=== PATIENT | female | born 1990 | race Caucasian/White ===

== ENCOUNTER → 2020-08-27 14:13 | Outpatient (BNVA) | payer MEDICAID, SELFPAY | PROVIDERS: Visit Provider Obstetrics & Gynecology | DX: Z32.01 Encounter for pregnancy test, result positive (principal) | CPT/HCPCS: 81025 ==

== ENCOUNTER → 2020-09-11 09:24 | Outpatient (BNVA) | payer MEDICAID, SELFPAY | PROVIDERS: Visit Provider Nurse Practitioner Women's Health | DX: O09.291 Supervision of pregnancy with other poor reproductive or obstetric history, first trimester (principal) | CPT/HCPCS: 81000 ==

== ENCOUNTER → 2020-09-27 08:20 | Outpatient (BNVA) | payer MEDICAID, SELFPAY | PROVIDERS: Visit Provider Obstetrics & Gynecology | DX: Z34.90 Encounter for supervision of normal pregnancy, unspecified, unspecified trimester (principal) | CPT/HCPCS: 80053; 80307; 81000; 85027; 86592; 86762; 86803; 86850; 86900; 87340; 87806 ==

== ENCOUNTER → 2020-10-11 08:50 | Outpatient (BNVA) | payer MEDICAID, SELFPAY | PROVIDERS: Visit Provider Obstetrics & Gynecology | DX: Z34.90 Encounter for supervision of normal pregnancy, unspecified, unspecified trimester (principal) | CPT/HCPCS: 81000 ==

== ENCOUNTER → 2020-10-13 13:49 | Outpatient (BNVA) | payer MEDICAID, SELFPAY | PROVIDERS: Visit Provider Nurse Practitioner Family | DX: Z20.828 Contact with and (suspected) exposure to other viral communicable diseases (principal) | CPT/HCPCS: 87635 ==

== ENCOUNTER → 2020-11-01 08:45 | Outpatient (BNVA) | payer MEDICAID, SELFPAY | PROVIDERS: Visit Provider Obstetrics & Gynecology | DX: Z34.81 Encounter for supervision of other normal pregnancy, first trimester (principal) | CPT/HCPCS: 81000; 87491; 87591; 88175 ==

== ENCOUNTER → 2020-12-06 08:11 | Outpatient (BNVA) | payer MEDICAID, SELFPAY | PROVIDERS: Visit Provider Obstetrics & Gynecology | DX: Z34.90 Encounter for supervision of normal pregnancy, unspecified, unspecified trimester (principal) | CPT/HCPCS: 76805; 81000 ==

== ENCOUNTER 2020-12-14 19:32 | Emergency (ER) | payer MEDICAID, SELFPAY ==
[2020-12-14 19:40] VITALS: BP 113/74; PULSE 83; RESP 18; TEMP 36.6; O2SAT 99; BMI 29.6
[2020-12-14 20:26] VITALS: BP 119/74; PULSE 84; RESP 17; O2SAT 100
--- NOTE | 2020-12-14 20:43 | PC.NURSE ---
patient refused bloodwork and iv from nurse.hcp made aware
--- NOTE | 2020-12-14 20:43 | PC.NURSE ---
heart tones auscultated by nurse with doppler, heart rate 151.
--- NOTE | 2020-12-14 20:46 | ED_ITS ---
HPI - Chest Pain General: Chief Complaint: Chest Pain Stated Complaint: IRREGULAR HEART BEAT Time Seen by Provider: 12/14/20 20:18 History of Present Illness: HPI narrative: This patient is a 30-year-old female who is G7, P4 at about 21 weeks. She started feeling her heart racing about half an hour ago while she was at work. She works at [employer] and was working at 10-hour shift today. She is worked overtime this week and this is her fifth shift. She said she is trying to drink plenty of water and has not had vomiting or diarrhea. She came in because she was anxious about her heart racing with the . She had some discomfort in the center of her chest. She also felt a little short of breath. On arrival her heart rate was 85 MD complaint: other (heart racing) Pain location: substernal Severity: moderate Associated symptoms: Deny abdominal pain, dyspnea, fever(s), nausea or vomiting Review of Systems General: Reports: 10 or more systems reviewed and unremarkable except in HPI and below Const: Denies: fever(s), chills, fatigue or malaise Eyes: Denies: change in vision ENMT: Denies: odynophagia Card: Denies: chest pain or swelling of feet/ankles Resp: Denies: dyspnea, productive cough or non-productive cough GI: Denies: abdominal pain, nausea or vomiting : Denies: flank pain or difficulty voiding Musc: Denies: neck pain or back pain Skin/Breast: Denies: rash Neuro: Denies: headache(s), numbness in extremities or weakness in extremities Damien/Lymph: Denies: easy bruising or easy bleeding PFSH ED PFSH: Medical History No pertinent past medical history neghx: htn,dm,thyroid,dvt/pe,herpes denies partner with herpes Surgical History Hx of adenoidectomy Family History Mother Heart disease Father Hypertension Family/Other Thyroid disease Maternal Aunt Daughter Thyroid disease hypothyroidism Social History Smoking and tobacco status: current every day smoker cigarettes [ Other cigarette details: Started age 15. Most smoked 2 packs/day. Currently less than 1 pack/day. ] Quit status (tobacco): has tried quititng Alcohol intake: never Female Reproductive History: Date of last menstrual period: 07/06/20 Spontaneous abortions: No Physical Exam Const: COMMON NORMALS: no acute distress, patient oriented x3, no limitations and alert GENERAL APPEARANCE: cooperative and comfortable HENMT: HEAD & SCALP: normal to inspection FACE & SINUS: normal facial exam Eye: GENERAL EYE: appearance normal, both eyes and all related structures Neck/C-Spine: COMMON NORMALS: supple, no meningeal signs and no JVD Chest: COMMONS NORMALS: normal inspection of the chest Resp: COMMON NORMALS: normal respiratory effort, No use of accessory muscles and clear to auscultation bilaterally AUSCULTATION: clear to auscultation bilaterally Cardio: COMMON NORMALS: no JVD, regular rate, regular rhythm and No murmurs present (Cardio) RATE: regular rate RHYTHM: regular rhythm GI: COMMON NORMALS: Normal to inspection, nondistended, normoactive bowel sounds present, Soft to palpation and non-tender INSPECTION: Yes normal to inspection and Yes gravid abdomen AUSCULTATION: Yes normoactive bowel sounds PALPATION: Yes Soft to palpation Back/Pelvis: COMMON NORMALS: thoracic and lumbar spine normal to inspection Extremity: COMMON NORMALS: normal to inspection Neuro: COMMON NORMALS: patient oriented x3, moves all extremities, no focal motor deficits and no sensory deficits noted SENSORIUM/ORIENTATION: Yes alert MENINGEAL SIGNS: Yes no meningeal signs Psych: COMMON NORMALS: mental status grossly normal, cooperative and normal affect Skin: COMMON NORMALS: no rashes or lesions noted and turgor normal GENERAL SKIN EXAM: no rashes or lesions noted and turgor normal Course ED course: I discussed with the patient that her EKG looks normal. I suggested that she might be dehydrated and ordered some blood work. She refused blood work and apparently eloped. I had intended to discharge her anyway as her heart tones were good, vitals were good, EKG was good. Vital Signs: Vital signs: Vital Signs Temperature 97.9 F 12/14/20 19:40 Pulse Rate 84 12/14/20 20:26 Respiratory Rate 17 12/14/20 20:26 Blood Pressure 119/74 12/14/20 20:26 Pulse Oximetry 100 12/14/20 20:26 Discharge Plan Discharge Patient Disposition: Home Clinical Impression: Heart palpitations Qualifiers: Weeks of gestation: 21 weeks Qualified Code(s): Z3A.21 - 21 weeks gestation of Condition: Stable Prescriptions: No Action prenat.vits,maicol,[id number] Tablet 1 tab PO DAILY Qty: 30 RF: 12 Discharge Orders: Discharge ED (Routine); Ordered 12/14/20 Ordered By: Joann Coy Discharge Diet: Usual diet Discharge Activity: Resume usual activity Patient Instructions: Palpitations (ED) Activity Restrictions/Additional Instructions: Make sure to drink plenty of fluids. Return to the ED if chest pain or other new or concerning symptoms. Follow up with Dr. Harris. Coding Level of Care Code ED Hospice Nurse Practitioner for [facility] Valente
== END 2020-12-14 21:01 | disposition home or self-care (01) ==
PROVIDERS: Emergency Provider Emergency Medicine
DX: O26.892 Other specified pregnancy related conditions, second trimester (principal); R00.2 Palpitations; O99.332 Smoking (tobacco) complicating pregnancy, second trimester; F17.210 Nicotine dependence, cigarettes, uncomplicated; Z3A.21 21 weeks gestation of pregnancy
CPT/HCPCS: 12345; 99281

== ENCOUNTER → 2020-12-27 09:33 | Outpatient (BNVA) | payer MEDICAID, SELFPAY | PROVIDERS: Visit Provider Obstetrics & Gynecology | DX: Z34.90 Encounter for supervision of normal pregnancy, unspecified, unspecified trimester (principal) | CPT/HCPCS: 81000 ==

== ENCOUNTER → 2021-01-31 09:35 | Outpatient (BNVA) | payer MEDICAID, SELFPAY | PROVIDERS: Visit Provider Obstetrics & Gynecology | DX: Z34.82 Encounter for supervision of other normal pregnancy, second trimester (principal) | CPT/HCPCS: 82950; 84315; 85027 ==

== ENCOUNTER → 2021-02-11 08:10 | Outpatient (BNVA) | payer MEDICAID, SELFPAY | PROVIDERS: Visit Provider Obstetrics & Gynecology | DX: Z34.90 Encounter for supervision of normal pregnancy, unspecified, unspecified trimester (principal) | CPT/HCPCS: 81000 ==

== ENCOUNTER → 2021-02-25 08:58 | Outpatient (BNVA) | payer MEDICAID, SELFPAY | PROVIDERS: Visit Provider Obstetrics & Gynecology | DX: Z34.83 Encounter for supervision of other normal pregnancy, third trimester (principal) | CPT/HCPCS: 81000 ==

== ENCOUNTER → 2021-03-14 08:29 | Outpatient (BNVA) | payer MEDICAID, SELFPAY | PROVIDERS: Visit Provider Nurse Practitioner Women's Health | DX: O99.013 Anemia complicating pregnancy, third trimester; D64.9 Anemia, unspecified; O26.03 Excessive weight gain in pregnancy, third trimester; O09.292 Supervision of pregnancy with other poor reproductive or obstetric history, second trimester; O99.333 Smoking (tobacco) complicating pregnancy, third trimester; F17.200 Nicotine dependence, unspecified, uncomplicated; Z3A.00 Weeks of gestation of pregnancy not specified | CPT/HCPCS: 81000 ==

== ENCOUNTER → 2021-03-25 08:15 | Outpatient (BNVA) | payer MEDICAID, SELFPAY | PROVIDERS: Visit Provider Obstetrics & Gynecology | DX: Z34.83 Encounter for supervision of other normal pregnancy, third trimester (principal) | CPT/HCPCS: 81000; 87081 ==

== ENCOUNTER → 2021-04-01 14:47 | Outpatient (BNVA) | payer MEDICAID, SELFPAY | PROVIDERS: Visit Provider Obstetrics & Gynecology | DX: Z34.90 Encounter for supervision of normal pregnancy, unspecified, unspecified trimester (principal) | CPT/HCPCS: 81000 ==

== ENCOUNTER → 2021-04-08 08:56 | Outpatient (BNVA) | payer MEDICAID, SELFPAY | PROVIDERS: Visit Provider Obstetrics & Gynecology | DX: Z34.83 Encounter for supervision of other normal pregnancy, third trimester (principal) | CPT/HCPCS: 81000 ==

== ENCOUNTER → 2021-04-15 09:36 | Outpatient (BNVA) | payer MEDICAID, SELFPAY | PROVIDERS: Visit Provider Obstetrics & Gynecology | DX: Z34.83 Encounter for supervision of other normal pregnancy, third trimester (principal) | CPT/HCPCS: 81000 ==

== ENCOUNTER → 2021-04-16 15:28 | Outpatient (BNVA) | payer MEDICAID, SELFPAY | PROVIDERS: Visit Provider Obstetrics & Gynecology | DX: Z34.83 Encounter for supervision of other normal pregnancy, third trimester (principal) | CPT/HCPCS: 87635 ==

== ENCOUNTER → 2021-04-22 09:25 | Outpatient (BNVA) | payer MEDICAID, SELFPAY | PROVIDERS: Visit Provider Obstetrics & Gynecology | DX: Z34.80 Encounter for supervision of other normal pregnancy, unspecified trimester (principal) | CPT/HCPCS: 81000 ==

== ENCOUNTER → 2021-04-25 13:13 | Outpatient (BNVA) | payer MEDICAID, SELFPAY | PROVIDERS: Visit Provider Obstetrics & Gynecology | DX: Z34.80 Encounter for supervision of other normal pregnancy, unspecified trimester (principal) | CPT/HCPCS: 81000 ==

== ENCOUNTER 2021-05-02 18:49 | Inpatient (IN) | payer MEDICAID, SELFPAY ==
[2021-05-02 19:01] VITALS: BP 160/96; PULSE 79; O2SAT 98
[2021-05-02 19:27] VITALS: BP 130/79; PULSE 80; RESP 20; TEMP 37.3; O2SAT 98; BMI 30.5
--- NOTE | 2021-05-02 19:43 | XRR_ITS ---
PROCEDURE INFORMATION: Exam: XR Chest Exam date and time: 05/02/2021 7:48 PM Age: 30 years old Clinical indication: Shortness of breath; Additional info: Reduced breath sounds, headache, x 3 days TECHNIQUE: Imaging protocol: XR of the chest. Views: 1 view. COMPARISON: No relevant prior studies available. FINDINGS: Lungs: Unremarkable. No consolidation. Pleural spaces: Unremarkable. No pleural effusion. No pneumothorax. Heart/Mediastinum: Unremarkable. No cardiomegaly. Bones/joints: Unremarkable. XR/XR chest 1V portable [id number] IMPRESSION: No acute findings.
[2021-05-02 20:05] LABS: Protein Urine Neg (Negative); Urine Appearance Clear (CLEAR); Urine Color Yellow (Yellow); pH Urine 7 (5-7)
[2021-05-02 20:06] LABS: Add Urine Microscopic? YES; Bilirubin Urine Neg (Negative); Blood Urine 3+ (Negative); Glucose Urine UA Norm (Normal); Ketones Urine Negative (Negative); Leukocyte Esterase Urine Trace (Negative); Nitrate Urine Negative (Negative); Urobilinogen Urine Norm (Negative)
[2021-05-02 20:11] LABS: RBC Urine 25-40 /hpf (0-2); Squamous Epithelial Cell Urine 0-4 /hpf (0-5)
[2021-05-02 20:12] LABS: Add Urine Culture? Yes; Bacteria Urine TRACE /hpf
--- NOTE | 2021-05-02 20:17 | CTR_ITS ---
PROCEDURE INFORMATION: Exam: CT Head Without Contrast Exam date and time: 05/02/2021 8:18 PM Age: 30 years old Clinical indication: Pain; Headache; Additional info: Headache. Spinal /post 3 days ago TECHNIQUE: Imaging protocol: Computed tomography of the head without contrast. Radiation optimization: All CT scans at this facility use at least one of these dose optimization techniques: automated exposure control; mA and/or kV adjustment per patient size (includes targeted exams where dose is matched to clinical indication); or iterative reconstruction. COMPARISON: No relevant prior studies available. RADIATION DOSE METRICS: Total DLP (mGy-cm): 1238.11 FINDINGS: Brain: Unremarkable. No hemorrhage. No significant white matter disease. No edema. Cerebral ventricles: No ventriculomegaly. Paranasal sinuses: Retention cysts in the bilateral maxillary sinuses. No air-fluid levels in the paranasal sinuses. Mastoid air cells: Unremarkable as visualized. No mastoid effusion. Bones/joints: Unremarkable. No acute fracture. Soft tissues: Unremarkable. CT/CT head wo con* [id number] IMPRESSION: 1. No acute intracranial abnormality demonstrated. 2. Retention cysts in the bilateral maxillary sinuses. No air-fluid levels in the paranasal sinuses. Radiation Dose CTDIVOL = (mGy): DLP = 1238.11 (mGy-cm)
--- NOTE | 2021-05-02 20:25 | CTR_ITS ---
PROCEDURE INFORMATION: Exam: CT Lumbar Spine Without Contrast Exam date and time: 05/02/2021 8:31 PM Age: 30 years old Clinical indication: Low back pain; Additional info: Csf leak? TECHNIQUE: Imaging protocol: Computed tomography images of the lumbar spine without contrast. Radiation optimization: All CT scans at this facility use at least one of these dose optimization techniques: automated exposure control; mA and/or kV adjustment per patient size (includes targeted exams where dose is matched to clinical indication); or iterative reconstruction. COMPARISON: CR Lumbar Spine 2-3 views* [id number] 02/07/2019 7:53 PM RADIATION DOSE METRICS: Total DLP (mGy-cm): 2364.04 FINDINGS: Vertebrae: No acute fracture. Normal alignment. Normal bone mineralization. No significant degenerative changes. L1-L2: No significant disc protrusion. No severe spinal canal stenosis. No significant neural foraminal narrowing. L2-L3: No significant disc protrusion. No severe spinal canal stenosis. No significant neural foraminal narrowing. L3-L4: No significant disc protrusion. No severe spinal canal stenosis. No significant neural foraminal narrowing. L4-L5: No significant disc protrusion. No severe spinal canal stenosis. No significant neural foraminal narrowing. L5-S1: No significant disc protrusion. No severe spinal canal stenosis. No significant neural foraminal narrowing. Epidural space: No fluid collection in the epidural space. Kidneys and ureters: Bilateral collecting system dilation changes greater than left. Reproductive: Partial visualization of an enlarged uterus. Soft tissues: Lumbar paraspinal muscles are symmetric and normal. There is no paraspinal soft tissue collection. Few small foci air noted in the subcutaneous in the midline of the lower lumbar area. CT/CT lumbar spine wo con* [id number] IMPRESSION: 1. Unremarkable appearance of lumbar spine. 2. No epidural space or paraspinal soft tissue fluid collection. Radiation Dose CTDIVOL = (mGy): DLP = 2364.04 (mGy-cm)
[2021-05-02 20:31] LABS: Alanine Aminotransferase 32 U/L (0-33); Albumin Level 3.8 g/dL (3.5-5.2); Alkaline Phosphatase 218 IU/L (35-105); Aspartate Amino Transferase 29 U/L (0-32); Blood Urea Nitrogen 9 mg/dL (6-20); Carbon Dioxide 22 mmol/L (22-29); Chloride 107 mmol/L (98-107); Globulin 3.5 g/dL (1.3-4.6); Glucose 89 mg/dL (65-115); Lactic Sepsis W/Reflex 1.1 mmol/L (0.5-2.2); Osmolality Calculated 290 mOsm/kg (285-295); Sodium 141 mmol/L (136-145); Total Bilirubin 0.3 mg/dL (0.15-1.2); Total Protein 7.3 g/dL (6.6-8.7)
[2021-05-02] MEDS: LORazepam 2 mg/mL INJ 1 mL 0.5 MG IVP (20:39)
[2021-05-02] MEDS: HYDROcodone-acetaminophen 5-325 mg Tablet 1 TAB PO (20:40)
[2021-05-02] MEDS: sodium chloride 0.9% 1,000 ML 999 ML IV (20:40)
[2021-05-02 21:39] LABS: Basophils # 0.1 10^3/uL (0.0-0.1); Basophils % 0.3 %; Eosinophils # 0.2 10^3/uL (0.0-0.8); Eosinophils % 1.5 %; Hematocrit 32.4 % (37.0-47.0); Hemoglobin 10.2 g/dL (11.5-15.3); Lymphocytes # 1.2 10^3/uL (0.8-4.8); Lymphocytes % 8.1 %; Mean Corpuscular HGB Conc 31.5 g/dL (30.0-36.0); Mean Platelet Volume 10.1 fL (7.4-10.4); Monocytes # 0.9 10^3/uL (0.2-0.9); Neutrophils # 12.13 10^3/uL (1.8-7.7); Neutrophils % 83.4 %; Nucleated Red Blood Cells % 0 %; Platelet Count 239 10^3/cmm (130-400); Red Blood Count 3.52 10^6/uL (4.1-5.3); White Blood Count 14.6 10^3/uL (4.0-10.0)
[2021-05-02] MEDS: cefTRIAXone 2,000 MG in sodium chloride 0.9% (plus) 50 ML 100 MG IV (22:08)
[2021-05-02] MEDS: acetaminophen 325 mg Tablet 650 MG PO (22:08)
--- NOTE | 2021-05-02 22:09 | ED_ITS ---
HPI - Headache General: Chief Complaint: Headache Stated Complaint: Severe Headache Time Seen by Provider: 05/02/21 19:42 History of Present Illness: HPI Narrative: The patient is 3 days she had a vaginal delivery and a spinal. She says 3 PM today she developed a severe headache which is not relieved by laying flat or made worse by sitting up. She also has low back pain where she was poked for the epidural. She says last time she had a baby she had to get a blood patch there. Her temperature is elevated to 99.1 on arrival. MD elicited complaint: headache Onset description: suddenly Location: frontal Severity: severe Quality & Timing: aching Exacerbating factors: none Context: occurred at rest Associated symptoms: Reports no associated symptoms; Deny chest pain, confusion or rash Review of Systems General: Reports: 10 or more systems reviewed and unremarkable except in HPI and below Const: Denies: fatigue Eyes: Denies: change in vision, blurry vision or eye redness ENMT: Denies: throat pain, swelling of lips/tongue, ear or mastoid pain or nasal congestion Card: Denies: chest pain, palpitations, irregular heart rhythm, edema, dyspnea on exertion or orthopnea Resp: Denies: dyspnea, productive cough or non-productive cough GI: Denies: abdominal pain, diarrhea or GI cramping : Denies: flank pain, difficulty voiding, urinary frequency or urinary urgency Musc: Denies: neck pain, back pain, extremity pain, joint pain, joint redness, limited range of motion or muscle weakness Skin/Breast: Denies: rash, pruritus, erythema, skin pain or skin tenderness Neuro: Reports: headache(s); Denies: numbness in extremities, weakness in extremities, sensory changes, difficulty walking, dizziness, confusion or Slurred speech present Psych: Denies: anxiety or depression Endo: Denies: polyuria All/Imm: Denies: urticaria, throat swelling or tongue swelling PFSH ED PFSH: Medical History (Updated 05/02/21 @ 23:03 by Nikhil Weber MD) No pertinent past medical history neghx: htn,dm,thyroid,dvt/pe,herpes denies partner with herpes Vaginal delivery 5 vaginal deliveries Surgical History Hx of adenoidectomy Family History Mother Heart disease Father Hypertension Family/Other Thyroid disease Maternal Aunt Daughter Thyroid disease hypothyroidism Social History Smoking and tobacco status: current every day smoker cigarettes [ Other cigarette details: Currently 1/2-1 ppd. Started age 15. Most smoked 2 packs/day. ] Quit status (tobacco): has tried quititng Alcohol intake: never Additional social history: Drug use: Never been Female Reproductive History: Date of last menstrual period: 07/06/20 Spontaneous abortions: No Physical Exam Const: COMMON NORMALS: no acute distress, average body habitus, patient oriented x3, no limitations, healthy appearing, alert and well nourished GENERAL APPEARANCE: cooperative, comfortable, well kempt and well developed ORIENTATION/CONSCIOUSNESS: Yes awake, Yes oriented to person, Yes oriented to place and Yes oriented to time HENMT: COMMON NORMALS: normocephalic, external ears normal and Normal external nose present HEAD & SCALP: normal to inspection and normocephalic NOSE: Normal external nose present EXTERNAL EAR: Yes external ears normal MOUTH: Normal oral and palatal mucosa present THROAT: posterior oropharynx normal Eye: COMMON NORMALS: Equal, round and reactive pupils present and EOMs intact bilaterally GENERAL EYE: appearance normal, both eyes and all related structures PUPIL: Yes Equal, round and reactive pupils present Neck/C-Spine: COMMON NORMALS: full ROM, no lymphadenopathy, no meningeal signs and no JVD GENERAL: Yes normal visual inspection Lymph: LYMPHATIC: no lymphadenopathy noted Chest: COMMONS NORMALS: normal inspection of the chest and normal palpation of entire chest wall Resp: COMMON NORMALS: normal respiratory effort, No retractions, No use of accessory muscles, clear to auscultation bilaterally and percussion normal EFFORT & INSPECTION: Yes able to speak in complete sentences AUSCULTATION: clear to auscultation bilaterally PERCUSSION: percussion normal Cardio: COMMON NORMALS: no JVD, regular rate, regular rhythm, S1 normal heart sound present, S2 normal heart sound present and Peripheral pulses 2+ throughout RATE: regular rate RHYTHM: regular rhythm HEART SOUNDS: S1 normal heart sound present and S2 normal heart sound present PERIPHERAL PULSES: Peripheral pulses 2+ throughout GI: COMMON NORMALS: Normal to inspection, nondistended, normoactive bowel sounds present, Soft to palpation, non-tender and no masses INSPECTION: Yes normal to inspection PALPATION: Yes Soft to palpation : COMMON NORMALS: Yes no CVA tenderness BLADDER/KIDNEY EXAM: Yes no CVA tenderness Back/Pelvis: COMMON NORMALS: no CVA tenderness, thoracic and lumbar spine normal to inspection, no thoracic nor lumbar tenderness and thoraco-lumbar ROM normal Extremity: COMMON NORMALS: normal to inspection, full ROM, capillary refill normal, no joint enlargement and no pedal edema GENERAL: Yes normal exam except as noted Neuro: COMMON NORMALS: patient oriented x3, CN's II-XII intact bilaterally, moves all extremities, no focal motor deficits, no sensory deficits noted and gait normal SENSORIUM/ORIENTATION: Yes alert, Yes oriented to person, Yes oriented to place and Yes oriented to time MENINGEAL SIGNS: Yes no meningeal signs Psych: COMMON NORMALS: mental status grossly normal, Normal thought process present, cooperative, normal affect and speech normal APPEARANCE: Yes well kempt ATTITUDE: Yes calm SPEECH: Yes normal speech THOUGHT PROCESS: Normal thought process present Skin: COMMON NORMALS: no rashes or lesions noted GENERAL SKIN EXAM: no rashes or lesions noted Procedures Lumbar Puncture Time Out Performed: Yes Patient Position: right lateral decubitus Skin Prep: Povidone-Iodine 1% Local Anesthetic: lidocaine 1% Amount of anesthesia used (mL): 5 Spinal Needle Gauge: 24G Interspace Used: L3-L4 Fluid Initially Obtained: clear Complications: Need to have other Practitioner Attempt Additional Comments: Dr. Kulkarni assisted. Clear tap. PT tolerated with minimal pain. Course Vital Signs: Vital signs: Vital Signs Temperature 99.1 F 05/02/21 19:27 Pulse Rate 80 05/02/21 19:27 Respiratory Rate 20 H 05/02/21 19:27 Blood Pressure 130/79 05/02/21 19:27 Pulse Oximetry 98 05/02/21 19:27 MDM - Headache MDM Narrative: Medical decision making narrative: The patient is a 30-year-old female 3 days post vaginal delivery. She had a epidural with a catheter in for over a day. Today she complained of severe headache and came in with elevated temperature, neck stiffness, elevated white count 14.6. She was given Tylenol, pain control. Possible CSF leak versus meningitis versus other cause of her fever. Consented her risks of lumbar puncture trauma to bone, muscle, tendon, nerve with potential severe permanent damage or infection. Pain, and bleeding a lso obvious complication. She understood the risks and accepts them. I also discussed alternatives of not doing it and just giving antibiotics and she prefers to have the tap done. Please see procedure note, clear CSF fluid obtained. Patient tolerated well. She was started on ceftriaxone and vancomycin. Discussed with Dr. Cornejo who accepts Lab Data: Labs: Lab Results 05/02/21 05/02/21 05/02/21 Range/Units 19:59 20:10 20:10 WBC Cancelled Corrected WBC Cancelled RBC Cancelled Hgb Cancelled Hct Cancelled MCV Cancelled MCH Cancelled MCHC Cancelled RDW Cancelled Plt Count Cancelled MPV Cancelled Gran % Cancelled Neut % (Auto) Cancelled Lymph % (Auto) Cancelled Bacon % (Auto) Cancelled Eos % (Auto) Cancelled Baso % (Auto) Cancelled Neut # (Auto) Cancelled Lymph # (Auto) Cancelled Bacon # (Auto) Cancelled Eos # (Auto) Cancelled Baso # (Auto) Cancelled Absolute Gran (aut o) Cancelled Nucleated RBC % (a uto) Cancelled Nucleated RBCs # Cancelled Sodium 141 (136-145) mmol/L Potassium 4.0 (3.5-5.1) mmol/L Chloride 107 (98-107) mmol/L Carbon Dioxide 22 (22-29) mmol/L Anion Gap 16.0 (5-19) BUN 9 (6-20) mg/dL Creatinine 0.7 (0.5-0.9) mg/dL GFR Calculation 97.0 (90-130) mL/min Glucose 89 (65-115) mg/dL Calculated Osmolal ity 290 (285-295) mOsm/k g Lactic Acid (0.5-2.2) mmol/L Calcium 9.0 (8.5-10.5) mg/dL Total Bilirubin 0.3 (0.15-1.2) mg/dL AST 29 (0-32) U/L ALT 32 (0-33) U/L Alkaline Phosphata se 218 H (35-105) IU/L C-Reactive Protein (0.0-4.9) mg/L Total Protein 7.3 (6.6-8.7) g/dL Albumin 3.8 (3.5-5.2) g/dL Globulin 3.5 (1.3-4.6) g/dL Procalcitonin (0-0.5) ng/mL Urine Color Yellow (Yellow) Urine Appearance Clear (CLEAR) Urine pH 7 (5-7) Ur Specific Gravit y 1.010 (1.005-1.030) Urine Protein Neg (Negative) Urine Glucose (UA) Norm (Normal) Urine Ketones Negative (Negative) Urine Blood 3+ H (Negative) Urine Nitrate Negative (Negative) Urine Bilirubin Neg (Negative) Urine Urobilinogen Norm (Negative) mg/dL Ur Leukocyte Lillie ase Trace H (Negative) Urine RBC 25-40 H (0-2) /hpf Urine WBC 5-10 H (0-5) /hpf Ur Squamous Epith Cells 0-4 H (0-5) /hpf Amorphous Sediment Not Reportable Urine Bacteria Trace (NONE) /hpf 05/02/21 05/02/21 05/02/21 Range/Units 20:10 21:28 21:28 WBC 14.6 H Corrected WBC RBC 3.52 L Hgb 10.2 L Hct 32.4 L MCV 92.0 MCH 29.0 MCHC 31.5 RDW 15.0 Plt Count 239 MPV 10.1 Gran % Neut % (Auto) 83.4 Lymph % (Auto) 8.1 Bacon % (Auto) 6.0 Eos % (Auto) 1.5 Baso % (Auto) 0.3 Neut # (Auto) 12.13 H Lymph # (Auto) 1.2 Bacon # (Auto) 0.9 Eos # (Auto) 0.2 Baso # (Auto) 0.1 Absolute Gran (aut o) Nucleated RBC % (a uto) 0 Nucleated RBCs # 0.0 Sodium (136-145) mmol/L Potassium (3.5-5.1) mmol/L Chloride (98-107) mmol/L Carbon Dioxide (22-29) mmol/L Anion Gap (5-19) BUN (6-20) mg/dL Creatinine (0.5-0.9) mg/dL GFR Calculation (90-130) mL/min Glucose (65-115) mg/dL Calculated Osmolal ity (285-295) mOsm/k g Lactic Acid 1.1 (0.5-2.2) mmol/L Calcium (8.5-10.5) mg/dL Total Bilirubin (0.15-1.2) mg/dL AST (0-32) U/L ALT (0-33) U/L Alkaline Phosphata se (35-105) IU/L C-Reactive Protein 15.3 H (0.0-4.9) mg/L Total Protein (6.6-8.7) g/dL Albumin (3.5-5.2) g/dL Globulin (1.3-4.6) g/dL Procalcitonin 0.04 (0-0.5) ng/mL Urine Color (Yellow) Urine Appearance (CLEAR) Urine pH (5-7) Ur Specific Gravit y (1.005-1.030) Urine Protein (Negative) Urine Glucose (UA) (Normal) Urine Ketones (Negative) Urine Blood (Negative) Urine Nitrate (Negative) Urine Bilirubin (Negative) Urine Urobilinogen (Negative) mg/dL Ur Leukocyte Lillie ase (Negative) Urine RBC (0-2) /hpf Urine WBC (0-5) /hpf Ur Squamous Epith Cells (0-5) /hpf Amorphous Sediment Urine Bacteria (NONE) /hpf Discharge Plan Discharge Patient Disposition: Admitted As Inpatient Clinical Impression: Fever, Headache, Leukocytosis Condition: Stable Coding Level of Care Code ED Cost 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
--- NOTE | 2021-05-02 22:31 | P.HP_ITS ---
Providers/Chief Complaint Chief Complaint: Severe Headache History of Present Illness Alma Sapp is a 30 year old female who is presented today with chief complaint of fever and neck stiffness. Patient had normal vaginal delivery 2 days ago at [facility], patient is stating that epidural catheter was left in which was removed yesterday around 9. She was discharged home. As soon as she was discharged she started experiencing headache, she is describing her headache as bandlike pattern throbbing in nature especially around frontal sinuses, her headache is associated with neck stiffness. No emesis, chest pain, shortness of breath or purulent vaginal discharge. No dysuria, or abdominal pain. Patient is stating that her symptoms started after the removal of epidural catheter yesterday. Decided to come to the hospital when her headache got worse. Patient is endorsing preeclampsia during her first otherwise no recent was not complicated with preeclampsia or eclampsia. She is septic with leukocytosis, tachypnea, I have requested ESR, CRP, lumbar puncture is pending, requested ceftriaxone and vancomycin first dose in the ER, patient denying dysuria, abnormal UA noted, head CT is unremarkable lumbar spine did not show any epidural or paraspinal fluid collection. Chest x-ray unremarkable Review of Systems Const: Reports: fever(s), chills, body aches and fatigue Eyes: Denies: change in vision ENMT: Denies: throat pain Card: Denies: chest pain Resp: Denies: dyspnea GI: Denies: abdominal pain : Denies: flank pain Musc: Reports: neck pain and muscle cramps Skin/Breast: Denies: rash Neuro: Reports: headache(s); Denies: numbness in extremities, weakness in extremities, sensory changes or difficulty walking Psych: Denies: anxiety Endo: Denies: polyuria Damien/Lymph: Denies: easy bruising All/Imm: Denies: urticaria Medications/Allergies Home Medications Medication Instructions Recorded Confirmed Last Taken Type prenat.vits,maicol,hug-oudp-uqtiy 1 tab PO DAILY #30 tab 11/01/20 05/02/21 Unknown Rx aspirin 81 mg tablet,delayed 162 mg PO DAILY tab 02/25/21 05/02/21 05/02/21 History release acetaminophen [Tylenol] 325 - 650 mg PO QID PRN 05/02/21 05/02/21 05/02/21 History ibuprofen 200 mg PO Q6H PRN 05/02/21 05/02/21 05/02/21 History Allergies Allergy/AdvReac Type Severity Reaction Status Date / Time butorphanol [Stadol] Allergy Severe anaphylacti Verified 04/25/21 13:01 c latex Allergy swelling Verified 04/25/21 13:01 PFSH Acute PFSH: Medical History (Updated 05/02/21 @ 22:47 by Shiela Aleman MD) No pertinent past medical history neghx: htn,dm,thyroid,dvt/pe,herpes denies partner with herpes Vaginal delivery 5 vaginal deliveries Surgical History Hx of adenoidectomy Family History Mother Heart disease Father Hypertension Family/Other Thyroid disease Maternal Aunt Daughter Thyroid disease hypothyroidism Social History Smoking and tobacco status: current every day smoker cigarettes [ Other cigarette details: Currently 1/2-1 ppd. Started age 15. Most smoked 2 pack s/day. ] Quit status (tobacco): has tried quititng Alcohol intake: never Additional social history: Drug use: Never been Female Reproductive History: Date of last menstrual period: 07/06/20 Sponta neous abortions: No Vitals/I&O/Wt Last Vital Signs Temp 99.1 F 05/02/21 19:27 Pulse 80 05/02/21 19:27 Resp 20 H 05/02/21 19:27 BP 130/79 05/02/21 19:27 Pulse Ox 98 05/02/21 19:27 Weight last 48 hrs Weight 88.451 kg Physical Exam Narrative: EXAM NARRATIVE: Young female She is edentulous Mild bilateral eyelid swelling noticed Neck stiffness on flexion Kerning's sign negative Sinus rhythm Soft abdomen nontender no signs of peritonitis Lower extremity no edema gangrene or ulcer No acute respite distress no audible stridor or wheezing EOMI, PERRLA No acute neurological signs or focal deficit Patient is complaining of headache In distress because of her headache Spine without any visible swelling however epidural catheter site is mildly tender on palpation Data : 05/02/21 21:28 05/02/21 20:10 Micro: Microbiology 05/02/21 21:28 Blood Culture - Preliminary Blood SPECIMEN COLLECTED 05/02/21 21:34 Blood Culture - Preliminary Blood SPECIMEN COLLECTED A&P Assessment and plan (1) Fever: Status: Acute (2) Neck pain: Status: Acute (3) Sepsis: Status: Acute Additional A&P Information Sepsis Criteria met with tachypnea, leukocytosis, I have requested CRP, ESR, CSF studies, abnormal UA however patient not endorsing any signs of UTI, no abdominal pain, she is describing vaginal discharge as mucus, no purulence noted by the patient Epidural catheter site mildly tender however CT scan did not show any epidural abscess CSF studies pending We will give her 1 dose of Tylenol 3 start her on vancomycin and cefepime as empirical treatment for possible meningitis, I am using cefepime because epidural catheter was left in for prolonged period of time, she received ceftriaxone in the ER Requested blood cultures and urine culture Regular diet DVT prophylaxis SCDs after lumbar puncture Full code Attestations Medical Necessity Statement*: Anticipating stay in the hospital cross more than 2 midnights for management of meningitis/sepsis Time Spent in Patient Care: (>than 50% of time spent in counselling and/or direct pt care on unit) . 30mins Coding Level of Care Code Acute Consultant In Ergonomics And Safety for [place] Fwd Diagnoses Fever R50.9 Neck pain M54.2 Sepsis A41.9
[2021-05-02 22:51] LABS: C Reactive Protein 15.3 mg/L (0.0-4.9)
[2021-05-02 22:58] LABS: Procalcitonin 0.04 ng/mL (0-0.5)
[2021-05-02 23:13] VITALS: PULSE 68; O2SAT 97
[2021-05-02 23:14] LABS: Erythrocyte Sedimentation Rate 50 mm/hr (0-15)
[2021-05-02] MEDS: lidocaine 1% INJ 20 mL SUBCUT (23:34)
[2021-05-02] MEDS: vancomycin 1,000 MG in sodium chloride 0.9% 250 ML 250 MG IV (23:38)
[2021-05-02 23:53] VITALS: BP 104/67; PULSE 63; O2SAT 97
[2021-05-03] VITALS (29 sets, daily range): BP systolic 96–131; BP diastolic 45–82; PULSE 44–98; RESP 14–22; TEMP 36.7–37.3; O2SAT 79–98
--- NOTE | 2021-05-03 01:09 | US_ITS ---
WS: [id number] Limited pelvic ultrasound. HISTORY: fever with vaginal delivery 2 days ago. COMPARISON: None. Uterus is enlarged extending over a length of 21 cm x 11 x 13 cm. The endometrium is centrally positi oned and thin. There is symmetric thickening of the myometrium. Large vascular channels peripherally. There is no focal mass or increased vascularity to suggest retained products of the placenta. This i s probably all involution of the normal endometrium. No significant amount of free fluid. No adnexal mass. The cervix was not visualized. US/US pelvic complete* [id number] IMPRESSION: 1. Normal recent appearance of the myometrium and endometrium. 2. No evidence for retained products of conception.
[2021-05-03] MEDS: cefepime 2,000 MG in sodium chloride 0.9% (plus) 50 ML 100 MG IV ×3 (01:35→21:34)
[2021-05-03] MEDS: acetaminophen-codeine 300-30mg Tablet 1 TAB PO (01:39)
[2021-05-03] MEDS: HYDROmorphone 1 mg/mL INJ 1 mL IVP (03:36)
[2021-05-03] MEDS: vancomycin 1,500 MG/300 ML PIGGYBACK 200 MG IV ×2 (05:12→18:53)
--- NOTE | 2021-05-03 08:00 | PC.NURSE ---
Pt angry that we have not addressed her needs and are treating her like a dopey. Apologized that pt feels this way and informed her that I would contact physician immediately.
--- NOTE | 2021-05-03 08:15 | PC.NURSE ---
Pt distraught. Feels like drs and nurses are not listening to her. Stated her REHABILITATION THERAPIST instructed her to go to ED and ask for blood patch but she is being charged for multiple unnecessary things instead. on speaker phone encouraging pt to leave. States her REHABILITATION THERAPIST is at [facility] waiting for her and that is where is taking her. Advised both pt and of medical risks. Informed both that I reached Dr Mcintyre and he anticipates seeing her in 15 minutes. and pt stated that antibiotics are not needed. Informed both that pt has a WBC of 14.6. stated he was not aware and encouraged her to wait for physician.
[2021-05-03 09:34] LABS: Iron 44 ug/dL (37-145); Percent Saturation 10.1 % (20-50); Total Iron Binding Capacity 433 mcg/dl; Unsaturated Iron Binding 389 ug/dL (112-347)
[2021-05-03 09:43] LABS: Thyroid Stimulating Hormone 1.03 uIU/mL (0.27-4.20)
[2021-05-03] MEDS: famotidine 20 mg Tablet PO ×2 (09:53→18:53)
[2021-05-03] MEDS: sodium chloride 0.9% 1,000 ML 75 ML IV (09:54)
--- NOTE | 2021-05-03 10:00 | PC.NURSE ---
Chief Payroll Clerk reported that blood draw unsuccessful after two attempts. Pt crying and upset. Refuses additional draws.
[2021-05-03 10:43] LABS: Amphetamines Screen Urine Negative (Negative); Barbiturates Screen Urine Negative (Negative); Benzodiazepines Screen Urine Negative (Negative); Cocaine Screen Urine Negative (Negative); Opiate Screen Urine Negative (Negative); PCP Screen Urine Negative (Negative); THC Screen Urine Negative (Negative)
--- NOTE | 2021-05-03 10:54 | PC.NURSE ---
Web Weaver states pt is refusing blood draw.
--- NOTE | 2021-05-03 11:01 | FL_ITS ---
WS: [id number] LUMBAR PUNCTURE CLINICAL INFORMATION: ??meningitis, headache COMPARISON: None. TECHNIQUE: Informed consent: The procedure and its potential risk and complications were discussed with the elroy ent. Verbal and written consent was obtained. Timeout: A timeout was performed to confirm correct patient, procedure, and site. Patient was prepped and draped in the usual sterile fashion. Lidocaine 1% was used for local anesthes ia. Utilizing fluoroscopic guidance, a 3.5 inch 22-gauge spinal needle was advanced into the subarach noid space at L4-5 via left oblique sublaminar approach. Free flow of cloudy CSF was obtained. 10 cc of CSF was collected and sent the lab for further analysis. FLUOROSCOPIC TIME: 0.2 minutes. FL/FL guided lumbarpunc dx* [id number] IMPRESSION: 1. Fluoroscopically guided lumbar puncture. No immediate complications 2. 10 cc of cloudy CSF was obtained.
--- NOTE | 2021-05-03 11:02 | PM.PN ---
Subjective Subjective: Interval history: Patient admitted overnight. H&P labs noted. On examination today patient wanted to leave AMA. She states she was over here for headache and thought she would require a blood patch but right now she is being worked up for meningitis. She thinks that she is being need to go on undergo test which she does not need to and is being charged for no rhyme or reason. Patient states she delivered her baby 3 days ago. She received epidural at that time and the epidural catheter remained in place for 24 hours which was removed on May 01. Patient reached home on May 02 side having headache in the afternoon for which she came to the hospital in the evening. Patient states at home she had a fever of 99.1 and in the ER had a fever of 99.6 with occasional chills but denies any nausea, vomiting, dizziness, photophobia. She states she has some pain in the neck but that has been going on before delivery. Any sick contacts, dysuria, diarrhea, abdominal pain. Complaining of leg cramps. Discussed with the patient in length regarding the symptoms that unfortunately because of the kind of symptoms she has, along with the fact that she had an epidural catheter in place for 24 hours, white count of 14,000 and episode of fever with chills it is important to rule out meningitis. Without ruling of meningitis it is not possible for patient to get a blood patch along with the fact it would be unsafe for the patient to be discharged. Patient is AOx3 and if she wants to leave she can leave AMA. On further review of the lab work it seems patient had lumbar puncture done in the ER yesterday but the no results are available in the system. Lab does not have CSF sample. On my conversation with the ER physician it seems that the sample was misplaced in transition. All of the above was discussed in detail with the patient and she has agreed for repeat lumbar puncture. Patient underwent fluoroscopic lumbar puncture in the evening. During the day patient did not have any fever, subsided saturate well on room air. Patient has been tearful for the whole day. Has been complaining of occasional headaches. On confirming with the patient regarding baby's health she states she is doing well fine. Patient's family was provided with bottles and formula for baby. Nurse pension fund manager from the ICU had driven down to patient's house to deliver the same. We also discussed with patient that unfortunately she is on narcotics and for now she would need to pump and dump the breast milk. Patient understands the need for pumping and separate need for dumping at present. Vitals/I&O/Wt Last Vital Signs Temp 98.8 F 05/03/21 08:00 Pulse 59 L 05/03/21 08:00 Resp 14 05/03/21 06:00 BP 105/45 05/03/21 08:00 Pulse Ox 96 05/03/21 08:00 05/02/21 05/03/21 05/03/21 22:59 06:59 14:59 Intake Total 470 / 470 Output Total 600 / 600 Balance -130 / -130 Weight last 48 hrs Weight 88.451 kg Physical Exam Narrative: EXAM NARRATIVE: General: Tearful, distressed, AO x3, mild pallor present, dehydrated HEENT: PERRLA, pupils bilaterally equal and reactive Chest: Normal vesicular breath sounds, no added sounds, equal good air entry bilaterally CVS: S1-S2 regular, no murmurs, no tachycardia, no gallops, no rubs Abdomen: belly, soft, nontender, no organomegaly, bowel sounds present Neuro: No focal deficits, no facial deformity, AO x3, power 5/5 in all limbs, neck stiffness present, Kernig's negative, plantars bilaterally downgoing, no photophobia Data : 05/03/21 15:00 05/03/21 15:10 Micro: Microbiology 05/02/21 19:59 Bacterial Antigens - Final Urine Kidney 05/02/21 21:28 Blood Culture - Preliminary Blood SPECIMEN COLLECTED 05/02/21 21:34 Blood Culture - Preliminary Blood SPECIMEN COLLECTED Laboratory Results WBC 11.2 10^3/uL (4.0-10.0) H 05/03/21 15:00 Corrected WBC Cancelled 05/02/21 20:10 RBC 3.51 10^6/uL (4.1-5.3) L 05/03/21 15:00 Hgb 10.2 g/dL (11.5-15.3) L 05/03/21 15:00 Hct 31.8 % (37.0-47.0) L 05/03/21 15:00 MCV 90.6 fL (81-99) 05/03/21 15:00 MCH 29.1 pg (28.0-34.0) 05/03/21 15:00 MCHC 32.1 g/dL (30.0-36.0) 05/03/21 15:00 RDW 14.7 % (12.1-15.1) 05/03/21 15:00 Plt Count 238 10^3/cmm (130-400) 05/03/21 15:00 MPV 10.5 fL (7.4-10.4) H 05/03/21 15:00 Gran % Cancelled 05/02/21 20:10 Neut % (Auto) 79.4 % 05/03/21 15:00 Lymph % (Auto) 12.4 % 05/03/21 15:00 [place] % (Auto) 6.2 % 05/03/21 15:00 Eos % (Auto) 1.2 % 05/03/21 15:00 Baso % (Auto) 0.3 % 05/03/21 15:00 Neut # (Auto) 8.89 10^3/uL (1.8-7.7) H 05/03/21 15:00 Lymph # (Auto) 1.4 10^3/uL (0.8-4.8) 05/03/21 15:00 [place] # (Auto) 0.7 10^3/uL (0.2-0.9) 05/03/21 15:00 Eos # (Auto) 0.1 10^3/uL (0.0-0.8) 05/03/21 15:00 Baso # (Auto) 0.0 10^3/uL (0.0-0.1) 05/03/21 15:00 Absolute Gran (auto) Cancelled 05/02/21 20:10 Nucleated RBC % (auto) 0 % 05/03/21 15:00 Nucleated RBCs # 0.0 /100WBC 05/03/21 15:00 ESR 50 mm/hr (0-15) H 05/02/21 21:28 Sodium 142 mmol/L (136-145) 05/03/21 15:10 Potassium 3.8 mmol/L (3.5-5.1) 05/03/21 15:10 Chloride 109 mmol/L (98-107) H 05/03/21 15:10 Carbon Dioxide 22 mmol/L (22-29) 05/03/21 15:10 Anion Gap 14.8 (5-19) 05/03/21 15:10 BUN 9 mg/dL (6-20) 05/03/21 15:10 Creatinine 0.6 mg/dL (0.5-0.9) 05/03/21 15:10 GFR Calculation 115.9 mL/min (90-130) 05/03/21 15:10 Glucose 93 mg/dL (65-115) 05/03/21 15:10 Calculated Osmolality 292 mOsm/kg (285-295) 05/03/21 15:10 Lactic Acid 1.1 mmol/L (0.5-2.2) 05/02/21 20:10 Calcium 8.2 mg/dL (8.5-10.5) L 05/03/21 15:10 Iron 44 ug/dL (37-145) 05/02/21 21:28 TIBC 433 mcg/dl 05/02/21 21:28 % Saturation 10.1 % (20-50) L 05/02/21 21:28 Unsat Iron Binding 389 ug/dL (112-347) H 05/02/21 21:28 Total Bilirubin 0.3 mg/dL (0.15-1.2) 05/03/21 15:10 AST 30 U/L (0-32) 05/03/21 15:10 ALT 29 U/L (0-33) 05/03/21 15:10 Alkaline Phosphatase 174 IU/L (35-105) H 05/03/21 15:10 C-Reactive Protein 15.3 mg/L (0.0-4.9) H 05/02/21 21:28 Total Protein 6.3 g/dL (6.6-8.7) L 05/03/21 15:10 Albumin 3.3 g/dL (3.5-5.2) L 05/03/21 15:10 Globulin 3.0 g/dL (1.3-4.6) 05/03/21 15:10 Procalcitonin 0.04 ng/mL (0-0.5) 05/02/21 21:28 TSH 1.03 uIU/mL (0.27-4.20) 05/02/21 21:28 Urine Color Yellow (Yellow) 05/02/21 19:59 Urine Appearance Clear (CLEAR) 05/02/21 19:59 Urine pH 7 (5-7) 05/02/21 19:59 Ur Specific [place] 1.010 (1.005-1.030) 05/02/21 19:59 Urine Protein Neg (Negative) 05/02/21 19:59 Urine Glucose (UA) Norm (Normal) 05/02/21 19:59 Urine Ketones Negative (Negative) 05/02/21 19:59 Urine Blood 3+ (Negative) H 05/02/21 19:59 Urine Nitrate Negative (Negative) 05/02/21 19:59 Urine Bilirubin Neg (Negative) 05/02/21 19:59 Urine Urobilinogen Norm mg/dL (Negative) 05/02/21 19:59 Ur Leukocyte Esterase Trace (Negative) H 05/02/21 19:59 Urine RBC 25-40 /hpf (0-2) H 05/02/21 19:59 Urine WBC 5-10 /hpf (0-5) H 05/02/21 19:59 Ur Squamous Epith Cells 0-4 /hpf (0-5) H 05/02/21 19:59 Amorphous Sediment Not Reportable 05/02/21 19:59 Urine Bacteria Trace /hpf (NONE) 05/02/21 19:59 Urine Opiates Screen Negative ng/mL (Negative) 05/02/21 19:59 Ur Barbiturates Screen Negative ng/mL (Negative) 05/02/21 19:59 Ur Phencyclidine Scrn Negative ng/mL (Negative) 05/02/21 19:59 Ur Amphetamines Screen Negative ng/mL (Negative) 05/02/21 19:59 U Benzodiazepines Scrn Negative ng/mL (Negative) 05/02/21 19:59 Urine Cocaine Screen Negative ng/mL (Negative) 05/02/21 19:59 U Marijuana (THC) Screen Negative ng/mL (Negative) 05/02/21 19:59 Impressions Chest X-Ray 05/02/21 19:43 IMPRESSION: No acute findings. Head CT 05/02/21 20:17 IMPRESSION: 1. No acute intracranial abnormality demonstrated. 2. Retention cysts in the bilateral maxillary sinuses. No air-fluid levels in the paranasal sinuses. Radiation Dose CTDIVOL = (mGy): DLP = 1238.11 (mGy-cm) Lumbar Spine CT 05/02/21 20:25 IMPRESSION: 1. Unremarkable appearance of lumbar spine. 2. No epidural space or paraspinal soft tissue fluid collection. Radiation Dose CTDIVOL = (mGy): DLP = 2364.04 (mGy-cm) Pelvis Ultrasound 05/03/21 01:09 IMPRESSION: 1. Normal recent appearance of the myometrium and endometrium. 2. No evidence for retained products of conception. Abdomen/Pelvis CT 05/03/21 11:26 IMPRESSION: 1. Enlarged heterogeneous uterus. 2. Fluid with a small amount of high attenuation blood products within the endometrial canal. No large endometrial hematoma. Small amount of blood products along the endocervical canal. 3. No free fluid in the abdomen or pelvis. 4. No drainable abscess or fluid collection. 5. Cholelithiasis. Gallbladder is contracted. A&P Assessment and plan (1) Headache: Status: Acute (2) Fever: Status: Acute (3) Sepsis: Status: Acute (4) Neck pain: Status: Acute Additional A&P Information Sepsis: Criteria met through tachypnea, leukocytosis. Patient had elevated ESR, CRP which could very well be because of status but cannot rule out because of possible infection. Patient's leukocytosis can also be in reaction to status. Pro-Ruy negative, lactate negative. Patient denies any photophobia but does have neck stiffness, Kernig's negative. CSF sample last in the ER yesterday. We will request fluoroscopic lumbar puncture. For now continue with vancomycin and cefepime. Check blood cultures, bacterial antigen, urine Legionella, CT abdomen pelvis to rule out other source of infection, pelvic ultrasound to rule out products of conception. IV fluids with normal saline at 75 cc/h. Tramadol for headache. Tylenol as needed. Case discussed with Dr. Edwards from anesthesia. He states unfortunately as meningitis is a possibility blood patch is not recommended telangiectasis ruled out. He also states that even if meningitis ruled out he would recommend IV fluids, bedrest for first 3 days and if that does not work then he would recommend patient to get blood patch. Full code. Lower limb Dopplers before SCDs for DVT prophylaxis. Full code. Heparin for DVT prophylaxis. Famotidine for PUD prophylaxis. After all the above discussion patient has agreed to stay and he has agreed for lumbar puncture. We discussed if studies of lumbar puncture are negative then antibiotics can be stopped will monitor patient's for 24 hours of antibiotics with bedrest and IV fluids for headache and then most likely will discharge patient to be followed up as an outpatient with pain clinic for blood patch. Patient is agreeable to staying at hospital for now. Attestations Medical Necessity Statement*: Requires further hospitalization for evaluation of headache, possible meningitis Time Spent in Patient Care: Greater than 35 minutes (>than 50% of time spent in counselling and/or direct pt care on unit). 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
--- NOTE | 2021-05-03 11:26 | CT_ITS ---
WS: [id number] CT ABDOMEN PELVIS TECHNIQUE: Noncontrast CT of the abdomen and pelvis with coronal and sagittal reformatted images. CLINICAL INFORMATION: determine source of infection; day 3 post COMPARISON: Ultrasound May 03, 2021 DLP: 1579.[address] scans at [facility] use at least one of these dose optimization techniques: automat ed exposure control; mA and/or kV adjustment per patient size (includes targeted exams where dose is matched to clinical indication); or iterative reconstruction. FINDINGS: Enlarged heterogeneous uterus. Blood products and fluid within the endometrium. Increased attenuation blood products in the endometrial canal and cervical canal. No free fluid in the cul-de-s ac. Normal adnexa. No evidence of uterine perforation. No evidence of pelvic hematoma. Lung bases are well aerated. Noncontrast liver is normal. Cholelithiasis. Adrenal glands are normal. No hydronephrosis in either kidney. Normal caliber abdominal aorta. Normal. Small fat-containing umbilical hernia. No evidence of small and large bowel obstruction. Norm al adnexa. CT/CT abdomen pelvis wo con [id number] IMPRESSION: 1. Enlarged heterogeneous uterus. 2. Fluid with a small amount of high attenuation blood products within the end ometrial canal. No large endometrial hematoma. Small amount of blood products a long the endocervical canal. 3. No free fluid in the abdomen or pelvis. 4. No drainable abscess or fluid collection. 5. Cholelithiasis. Gallbladder is contracted.
--- NOTE | 2021-05-03 11:29 | USCV_ITS ---
Alma Sapp Age: 30 Gender: F : 1990 Exam Date: 05/03/2021 11:39 Ordering Phys: True Mcintyre MD Technologist: EBER [place] [facility] [place] PAIN AND CRAMPING HISTORY: Lower extremity pain. PROCEDURES: Venous duplex imaging was performed in bilateral lower extremities. The following venous structures were evaluated: common femoral vein, profunda vein, proximal portion of the greater saphenous vein, superficial femoral vein, and the popliteal vein. In addition, the posterior tibial and peroneal trunk were evaluated. Serial compression, augmentation maneuvers, and spectral Doppler flow evaluation were performed. FINDINGS: Normal 2-D Doppler and augmentation and compressibility throughout the lower extremity venous structures. Additional imaging through the proximal calf veins also reveals no thrombus. Limited evaluation of the greater saphenous vein is patent with no thrombus.. CONCLUSIONS No evidence of right lower extremity DVT. No evidence of left lower extremity DVT. Rodrigo Silva MD (Electronically Signed) Final Date: 03 May 2021 16:01 S
[2021-05-03] MEDS: acetaminophen 325 mg Tablet 650 MG PO ×2 (13:04→22:53)
--- NOTE | 2021-05-03 15:17 | PC.RESP ---
Smoking Cessation information sent to patient.
[2021-05-03 15:54] LABS: Basophils % 0.3 %; Eosinophils # 0.1 10^3/uL (0.0-0.8); Eosinophils % 1.2 %; Hematocrit 31.8 % (37.0-47.0); Hemoglobin 10.2 g/dL (11.5-15.3); Lymphocytes # 1.4 10^3/uL (0.8-4.8); Lymphocytes % 12.4 %; Mean Corpuscular HGB Conc 32.1 g/dL (30.0-36.0); Mean Corpuscular Hemoglobin 29.1 pg (28.0-34.0); Mean Corpuscular Volume 90.6 fL (81-99); Mean Platelet Volume 10.5 fL (7.4-10.4); Monocytes # 0.7 10^3/uL (0.2-0.9); Monocytes % 6.2 %; Neutrophils # 8.89 10^3/uL (1.8-7.7); Neutrophils % 79.4 %; Nucleated Red Blood Cells % 0 %; Platelet Count 238 10^3/cmm (130-400); Red Blood Count 3.51 10^6/uL (4.1-5.3); Red Cell Distribution Width 14.7 % (12.1-15.1); White Blood Count 11.2 10^3/uL (4.0-10.0)
[2021-05-03 16:05] LABS: Alanine Aminotransferase 29 U/L (0-33); Albumin Level 3.3 g/dL (3.5-5.2); Alkaline Phosphatase 174 IU/L (35-105); Anion Gap 14.8 (5-19); Aspartate Amino Transferase 30 U/L (0-32); Blood Urea Nitrogen 9 mg/dL (6-20); Calcium 8.2 mg/dL (8.5-10.5); Carbon Dioxide 22 mmol/L (22-29); Chloride 109 mmol/L (98-107); Glomerular Filtration Rate 115.9 mL/min (90-130); Glucose 93 mg/dL (65-115); Osmolality Calculated 292 mOsm/kg (285-295); Potassium 3.8 mmol/L (3.5-5.1); Sodium 142 mmol/L (136-145); Total Bilirubin 0.3 mg/dL (0.15-1.2); Total Protein 6.3 g/dL (6.6-8.7)
[2021-05-03 17:17] LABS: CSF Mononuclear # 0.655 10^3/uL (50-90); Mononuclear WBC CSF % 27 % (50-90); Polynuclear Cells ,CSF # 1.742 10^3/uL (0-10); Polynuclear WBC CSF % 73 % (0-10); Red Blood Cell CSF 1 10^3/uL (0-0); White Blood Cell CSF 2397 /uL (0-5)
[2021-05-03 17:35] LABS: Glucose CSF 50 mg/dL (40-70)
[2021-05-03 17:41] LABS: Appearance CSF HAZY (CLEAR); Color CSF COLORLESS (COLORLESS)
[2021-05-03 17:42] LABS: Pathology Referral Yes
[2021-05-03 17:43] LABS: CSF Specific Gravity 1.015
[2021-05-03 17:48] LABS: Total Protein CSF 100 mg/dL (15-45)
[2021-05-03] MEDS: ferrous gluconate 324 mg Tablet PO (18:53)
[2021-05-03] MEDS: prenatal vitamin Capsule 1 CAP PO (18:58)
[2021-05-03] MEDS: morphine 4 mg/mL SDV 1 mL 2 MG IVP (20:06)
[2021-05-04] VITALS (19 sets, daily range): BP systolic 109–131; BP diastolic 71–74; PULSE 48–98; RESP 16–19; TEMP 36.6–37.4; O2SAT 94–100
--- NOTE | 2021-05-04 01:03 | PC.NURSE ---
New Orders; Morphine IVP Q8H PRN orders given from MD Liseth for moderate to severe pain.
[2021-05-04] MEDS: cefepime 2,000 MG in sodium chloride 0.9% (plus) 50 ML 100 MG IV ×3 (02:25→18:05)
[2021-05-04] MEDS: vancomycin 1,500 MG/300 ML PIGGYBACK 200 MG IV ×3 (02:26→20:48)
[2021-05-04] MEDS: sodium chloride 0.9% 1,000 ML 75 ML IV ×3 (02:48→18:06)
[2021-05-04] MEDS: morphine 4 mg/mL SDV 1 mL 2 MG IVP ×2 (04:29→14:03)
[2021-05-04 05:18] LABS: Basophils % 0.4 %; Eosinophils # 0.2 10^3/uL (0.0-0.8); Eosinophils % 2.5 %; Hematocrit 32.8 % (37.0-47.0); Hemoglobin 10.1 g/dL (11.5-15.3); Mean Corpuscular HGB Conc 30.8 g/dL (30.0-36.0); Mean Corpuscular Hemoglobin 28.8 pg (28.0-34.0); Mean Corpuscular Volume 93.4 fL (81-99); Mean Platelet Volume 10.8 fL (7.4-10.4); Monocytes # 0.7 10^3/uL (0.2-0.9); Neutrophils # 6.01 10^3/uL (1.8-7.7); Neutrophils % 66.7 %; Nucleated Red Blood Cells % 0 %; Platelet Count 220 10^3/cmm (130-400); Red Blood Count 3.51 10^6/uL (4.1-5.3); Red Cell Distribution Width 14.9 % (12.1-15.1)
[2021-05-04 05:43] LABS: Alanine Aminotransferase 35 U/L (0-33); Albumin Level 3.3 g/dL (3.5-5.2); Alkaline Phosphatase 169 IU/L (35-105); Anion Gap 15.5 (5-19); Aspartate Amino Transferase 30 U/L (0-32); Blood Urea Nitrogen 12 mg/dL (6-20); Calcium 7.9 mg/dL (8.5-10.5); Carbon Dioxide 20 mmol/L (22-29); Chloride 108 mmol/L (98-107); Globulin 2.7 g/dL (1.3-4.6); Glucose 76 mg/dL (65-115); Osmolality Calculated 289 mOsm/kg (285-295); Potassium 3.5 mmol/L (3.5-5.1); Sodium 140 mmol/L (136-145); Total Bilirubin 0.2 mg/dL (0.15-1.2)
[2021-05-04] MEDS: ferrous gluconate 324 mg Tablet PO ×2 (07:47→18:05)
[2021-05-04] MEDS: acetaminophen 325 mg Tablet 650 MG PO ×2 (07:47→18:03)
--- NOTE | 2021-05-04 07:49 | PC.NURSE ---
Pt assisted up to chair.
[2021-05-04] MEDS: famotidine 20 mg Tablet PO ×2 (09:06→18:05)
[2021-05-04] MEDS: prenatal vitamin Capsule 1 CAP PO (09:06)
--- NOTE | 2021-05-04 09:46 | PC.NURSE ---
Charting done by DOUG Mix was checked by financial underwriter.
--- NOTE | 2021-05-04 10:26 | P.PN_ITS ---
Subjective Subjective: Interval history: No acute events overnight. On examination on entering the room patient is lying comfortably in bed sleeping. On waking up she states she is feeling a lot better. Headaches are better. Patient denies any nausea vomiting, headache. Patient has remained h emodynamically stable and afebrile with a T-max of 99.7 last 24 hours. On discussing that patient potentially has meningitis and would need to be in hospital for few more days before culture results are back patient becomes tearful. During my conversation with the patient patient's was on the phone and I updated him of the medical management for now as well and the both patient and patient's are agreeable to the management plan. Vitals/I&O/Wt Last Vital Signs Temp 98.5 F 05/04/21 05:00 Pulse 54 L 05/04/21 09:00 Resp 18 05/04/21 05:00 BP 131/73 05/04/21 09:00 Pulse Ox 97 05/04/21 09:00 05/03/21 05/04/21 05/04/21 22:59 06:59 14:59 Intake Total 600 / 1010 1600 / 2610 260 / 260 Output Total 1400 / 1400 550 / 1950 Balance -800 / -390 1050 / 660 260 / 260 Weight last 48 hrs Weight 88.451 kg Physical Exam Narrative: EXAM NARRATIVE: General: Tearful, distressed, AO x3, mild pallor present, dehydrated HEENT: PERRLA, pupils bilaterally equal and reactive Chest: Normal vesicular breath sounds, no added sounds, equal good air entry bilaterally CVS: S1-S2 regular, no murmurs, no tachycardia, no gallops, no rubs Abdomen: belly, soft, nontender, no organomegaly, bowel sounds present Neuro: No focal deficits, no facial deformity, AO x3, power 5/5 in all limbs, neck stiffness present, Kernig's negative, plantars bilaterally downgoing, no photophobia Data : 05/04/21 03:21 05/04/21 03:21 Micro: Microbiology 05/03/21 16:35 Gram Stain - Final Cerebrospinal Fluid CSF Culture - Preliminary 05/02/21 19:59 Urine Culture - Preliminary Urine,Clean Catch 05/02/21 21:28 Blood Culture - Preliminary Blood NEGATIVE TO DATE 05/02/21 21:34 Blood Culture - Preliminary Blood NEGATIVE TO DATE 05/03/21 16:35 Bacterial Antigens - Final Cerebrospinal Fluid 05/03/21 11:20 Legionella Urinary Antigen - Final Urine,Voided 05/02/21 19:59 Bacterial Antigens - Final Urine Kidney A&P Assessment and plan (1) Headache: Status: Acute (2) Fever: Status: Acute (3) Sepsis: Status: Acute (4) Neck pain: Status: Acute Additional A&P Information Sepsis: Criteria met through tachypnea, leukocytosis. Lumbar puncture done yesterday shows elevated white count of 2400, protein of 100, glucose of 50. Concerning of bacterial meningitis. Patient's white count has resolved. Continue with vancomycin and cefepime for now. Will await blood cultures, CSF culture results before de-escalating antibiotics. Tylenol for headache. Check MRSA swab, respiratory viral panel, rapid strep, flu swab. We also discussed that given the fact that patient has meningitis blood patch is contraindicated. CT abdomen pelvis and pelvic ultrasound results appreciated. status: Patient has breast pump at bedside. He has been advised to pump breastmilk every few hours to avoid breast engorgement. Patient has been also advised to dump the breast milk for now. Continue with oral iron supplementation, multivitamins. Full code. Heparin for DVT prophylaxis. Famotidine for PUD prophylaxis. [facility]. Discharge planning: Plan to discharge home. Patient will been in hospital. We have better CSF cultures result and sensitivities for proper tailoring of antibiotics on discharge. Attestations 2 Medical Necessity Statement*: Patient requires further hospitalization for management of sepsis secondary to meningitis Time Spent in Patient Care: Greater than 35 minutes (>than 50% of time spent in counselling and/or direct pt care on unit) . 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
[2021-05-04] MEDS: aspirin 81 mg EC Tablet 162 MG PO (12:29)
[2021-05-04 12:32] LABS: Influenza A by IFA Negative (Negative); Influenza B by IFA Negative (Negative)
[2021-05-04 13:09] LABS: Rapid Strep A Test Negative (Negative)
[2021-05-04] MEDS: heparin 5,000 unit/mL INJ 1 mL 5000 UNIT SUBCUT (18:14)
[2021-05-05] VITALS: BP 120/73; PULSE 54; RESP 17; TEMP 36.4; O2SAT 98
[2021-05-05] MEDS: heparin 5,000 unit/mL INJ 1 mL 5000 UNIT SUBCUT ×3 (00:09→15:11)
[2021-05-05] MEDS: cefepime 2,000 MG in sodium chloride 0.9% (plus) 50 ML 100 MG IV ×3 (02:04→17:24)
[2021-05-05] MEDS: vancomycin 1,500 MG/300 ML PIGGYBACK 200 MG IV (03:00)
[2021-05-05 04:00] VITALS: BP 102/66; PULSE 50; RESP 20; TEMP 36.6; O2SAT 99
[2021-05-05] MEDS: acetaminophen 325 mg Tablet 650 MG PO ×2 (04:50→13:28)
[2021-05-05 08:00] VITALS: BP 106/66; PULSE 63; RESP 15; TEMP 36.7; O2SAT 99
[2021-05-05 08:23] LABS: Basophils # 0.1 10^3/uL (0.0-0.1); Basophils % 0.7 %; Eosinophils # 0.3 10^3/uL (0.0-0.8); Eosinophils % 3.8 %; Hematocrit 31.8 % (37.0-47.0); Lymphocytes % 25.1 %; Mean Corpuscular HGB Conc 31.4 g/dL (30.0-36.0); Mean Corpuscular Hemoglobin 28.8 pg (28.0-34.0); Mean Corpuscular Volume 91.6 fL (81-99); Mean Platelet Volume 10.5 fL (7.4-10.4); Monocytes # 0.7 10^3/uL (0.2-0.9); Monocytes % 8.5 %; Neutrophils # 4.96 10^3/uL (1.8-7.7); Neutrophils % 61.3 %; Nucleated Red Blood Cells % 0 %; Platelet Count 239 10^3/cmm (130-400); Red Blood Count 3.47 10^6/uL (4.1-5.3); Red Cell Distribution Width 15.1 % (12.1-15.1); White Blood Count 8.1 10^3/uL (4.0-10.0)
[2021-05-05 09:25] LABS: Alanine Aminotransferase 27 U/L (0-33); Albumin Level 3.2 g/dL (3.5-5.2); Alkaline Phosphatase 140 IU/L (35-105); Anion Gap 11.9 (5-19); Aspartate Amino Transferase 20 U/L (0-32); Blood Urea Nitrogen 12 mg/dL (6-20); Calcium 8.1 mg/dL (8.5-10.5); Carbon Dioxide 20 mmol/L (22-29); Chloride 110 mmol/L (98-107); Glomerular Filtration Rate 115.9 mL/min (90-130); Glucose 83 mg/dL (65-115); Osmolality Calculated 285 mOsm/kg (285-295); Potassium 3.9 mmol/L (3.5-5.1); Sodium 138 mmol/L (136-145); Total Bilirubin 0.2 mg/dL (0.15-1.2); Total Protein 6.2 g/dL (6.6-8.7)
[2021-05-05] MEDS: aspirin 81 mg EC Tablet 162 MG PO (09:35)
[2021-05-05] MEDS: famotidine 20 mg Tablet PO ×2 (09:35→17:24)
[2021-05-05] MEDS: ferrous gluconate 324 mg Tablet PO ×2 (09:35→17:24)
[2021-05-05] MEDS: prenatal vitamin Capsule 1 CAP PO (09:36)
--- NOTE | 2021-05-05 10:59 | P.PN_ITS ---
Subjective Subjective: Interval history: No acute events overnight. Patient states she is feeling a lot better. She is resting well. States pain in her back and legs are gone. Headache is occasional now. Has remained afebrile actually 4 hours. Patient was found to have bradycardia on the telemetry especially while sleeping. 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 She has never followed up with her doctor regarding this. Vitals/I&O/Wt Last Vital Signs Temp 98.0 F 05/05/21 08:00 Pulse 63 05/05/21 08:00 Resp 15 05/05/21 08:00 BP 106/66 05/05/21 08:00 Pulse Ox 99 05/05/21 08:00 05/04/21 05/05/21 05/05/21 22:59 06:59 14:59 Intake Total 1640 / 2627.5 1060 / 3687.5 120 / 120 Balance 1640 / 1727.5 1060 / 2787.5 120 / 120 Physical Exam Narrative: EXAM NARRATIVE: General: Tearful, distressed, AO x3, mild pallor present, dehydrated HEENT: PERRLA, pupils bilaterally equal and reactive Chest: Normal vesicular breath sounds, no added sounds, equal good air entry bilaterally CVS: S1-S2 regular, no murmurs, no tachycardia, no gallops, no rubs Abdomen: belly, soft, nontender, no organomegaly, bowel sounds p resent Neuro: No focal deficits, no facial deformity, AO x3, power 5/5 in all limbs, neck stiffness present, Kernig's negative, plantars bilaterally downgoing, no photophobia Data : 05/05/21 08:02 05/05/21 08:02 Micro: Microbiology 05/03/21 16:35 Gram Stain - Final Cerebrospinal Fluid CSF Culture - Preliminary 05/02/21 05:05 MRSA Culture - Final Nose 05/02/21 19:59 Urine Culture - Preliminary Urine,Clean Catch A&P Assessment and plan (1) Sepsis: Status: Acute (2) Headache: Status: Acute (3) Bradycardia: Status: Acute (4) Fever: Status: Acute (5) Neck pain: Status: Acute Additional A&P Information Sepsis: Criteria met through tachypnea, leukocytosis. Lumbar puncture done yesterday shows elevated white count of 2400, protein of 100, glucose of 50. Concerning of bacterial meningitis. MRSA negative. Rapid strep negative. Flu negative. Respiratory viral panel awaited. CSF and blood cultures preliminary negative. Patient's white count has resolved. Stop vancomycin continue with cefepime. Given the fact that patient had recent epidural cannot rule out chemical peritonitis but with a significant CSF study and patient headache resolving with antibiotics most likely patient will need antibiotics for next 10 days. Will await further CSF culture and sensitivities to decide about antibiotics on discharge. Tylenol for headache. Bradycardia: Possible history of being born with a hole in her heart. Negative EKG, echocardiogram to be done. Patient will benefit with event monitor on discharge because of history of episodes of tachycardia followed by bradycardia to rule out atrial fibrillation versus tachybradycardia syndrome. status: Patient has breast pump at bedside. He has been advised to pump breastmilk every few hours to avoid breast engorgement. Patient has been also advised to dump the breast milk for now. Continue with oral iron supplementation, multivitamins. Full code. Heparin for DVT prophylaxis. Famotidine for PUD prophylaxis. Discharge planning: Plan to discharge home. Patient will been in hospital. We have better CSF cultures result and sensitivities for proper tailoring of antibiotics on discharge. Attestations Medical Necessity Statement*: Requires further hospitalization for management of sepsis secondary to meningitis, bradycardia under evaluation. Time Spent in Patient Care: Greater than 35 minutes (>than 50% of time spent in counselling and/or direct pt care on unit) . 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
--- NOTE | 2021-05-05 11:22 | ECG_ITS ---
[facility] ED Test Date: 2021-05-05 Pat Name: Alma Sapp Department: Room: 257 Gender: Female Supervisor Cell Efficiency: : 1990 Requested By: True Mcintyre Order Number: [id number] MD: Jo Ann Iglesias M.D. Measurements Intervals [place] Rate: 48 P: 48 AR: 141 QRS: 28 QRSD: 90 T: 28 QT: 423 QTc: 381 Interpretive Statements SINUS BRADYCARDIA No previous ECG available for comparison Electronically Signed On 05-08-2021 16:28:56 CDT by Jo Ann Iglesias M.D. [id number]
--- NOTE | 2021-05-05 11:22 | PC.NURSE ---
Rcvd verbal order for EKG for bradycardia, administrative underwriter put order in
[2021-05-05 11:59] VITALS: BP 123/76; PULSE 51; RESP 17; TEMP 36.8; O2SAT 99
--- NOTE | 2021-05-05 12:05 | USCV_ITS ---
Alma Sapp Age: 30 Gender: F : 1990 Exam Date: 05/05/2021 13:39 Ordering Phys: True Mcintyre MD Technologist: ABIEL Exam Location: [facility] [place] Indication: Bradycardia, possible H/o being born with hole in heart BP: 123 / 76 HR: 50 Rhythm: Sinus Technical Quality: Adequate MEASUREMENTS (Male / Female) Normal Values 2D ECHO LV Diastolic Diameter PLAX 4.7 cm 4.2 - 5.9 / 3.9 - 5.3 cm LV Systolic Diameter PLAX 2.7 cm LV Chamber Size 5.3 cm IVS Diastolic Thickness 1.0 cm 0.6 - 1.0 / 0.6 - 0.9 cm IVS Systolic Thickness 1.7 cm LVPW Diastolic Thickness 1.2 cm 0.6 - 1.0 / 0.6 - 0.9 cm LVPW Systolic Thickness 1.2 cm RV Chamber Size 4.3 cm LVOT Diameter 2.1 cm LV Ejection Fraction 2D Teich 72.9 % LV Ejection Fraction MOD 2C 73.7 % LV Ejection Fraction 2C AL 72.8 % LA Diameter 3.7 cm LA Width 3.6 cm LA Height 4.5 cm RA Width 3.2 cm RA Height 4.9 cm Aorta at Sinotubular Diameter 2.5 cm M-MODE LV Diastolic Diameter MM 4.6 cm 4.2 - 5.9 / 3.9 - 5.3 cm LV Systolic Diameter MM 2.6 cm LV Ejection Fraction MM Teich 74.6 % IVS Diastolic Thickness MM 1.2 cm 0.6 - 1.0 / 0.6 - 0.9 cm IVS Systolic Thickness MM 1.5 cm LVPW Diastolic Thickness MM 1.2 cm 0.6 - 1.0 / 0.6 - 0.9 cm LVPW Systolic Thickness MM 1.9 cm RV Diastolic Diameter MM 2.1 cm Aortic Annulus Diameter 2.6 cm LA Ao Ratio MM 1.7 MV E Point Septal Separation 0.3 cm DOPPLER AV Peak Velocity 145.0 cm/s LVOT Peak Velocity 126.0 cm/s AV Area Cont Eq vti 3.1 cm squared AV Area Cont Eq pk 2.9 cm squared MV Area PHT 4.6 cm squared Mitral E to A Ratio 2.1 MV E' Velocity 63.5 cm/s Mitral E to MV E' Ratio 5.3 Mitral E to LV E' Lateral Ratio 4.8 Mitral E to LV E' Septal Ratio 5.7 TR Peak Velocity 238.3 cm/s TR Peak Gradient 22.7 mmHg TV Peak E Velocity 73.0 cm/s Right Atrial Pressure 8.0 mmHg Pulmonary Artery Systolic Pressu 30.7 mmHg PV Peak Velocity 106.0 cm/s QpQs Shunt Ratio 1.6 RV Acceleration Time 0.1 s RV Ejection Time 0.3 s RV AcT/ET 0.4 FINDINGS Left Ventricle Normal left ventricular size. LV systolic function is normal with EF of 55-60%. No regional wall motion abnormalities. Normal diastolic filling pattern. Right Ventricle The right ventricle is normal in size and function. Right Atrium The right atrium is normal in size. Left Atrium The left atrium is normal in size. Mitral Valve Structurally normal mitral valve without significant stenosis or prolapse. There is trace mitral regurgitation. Aortic Valve Structurally normal aortic valve without significant sclerosis or stenosis. There is no aortic regurgitation. Tricuspid Valve Structurally normal tricuspid valve without significant stenosis or regurgitation. RA pressure is 5-10mmHg. Insufficient TR jet to calculate RVSP Pulmonic Valve Structurally normal pulmonic valve without significant stenosis. There is trace pulmonic regurgitation. Pericardium Normal pericardium without effusion. Aorta Normal ascending aorta dimension. CONCLUSIONS LV systolic function is normal with EF of 55-60% Normal diastolic function Trace mitral regurgitation. Trace pulmonic regurgitation No comparison studies are avialable Andrew Kerns MD (Electronically Signed) Final Date: 05 May 2021 20:00 S
[2021-05-05 16:00] VITALS: BP 130/77; PULSE 46; RESP 15; TEMP 36.7; O2SAT 99
[2021-05-05 19:32] VITALS: BP 113/73; PULSE 47; RESP 18; TEMP 36.5; O2SAT 99
[2021-05-06] MEDS: heparin 5,000 unit/mL INJ 1 mL 5000 UNIT SUBCUT ×2 (01:14→08:06)
[2021-05-06] MEDS: cefepime 2,000 MG in sodium chloride 0.9% (plus) 50 ML 100 MG IV ×2 (01:14→10:59)
[2021-05-06] MEDS: acetaminophen 325 mg Tablet 650 MG PO ×2 (01:16→11:25)
[2021-05-06 03:45] VITALS: BP 121/77; PULSE 56; RESP 20; TEMP 37; O2SAT 99
[2021-05-06 05:03] LABS: Basophils # 0.1 10^3/uL (0.0-0.1); Basophils % 0.7 %; Eosinophils # 0.3 10^3/uL (0.0-0.8); Hematocrit 32.3 % (37.0-47.0); Lymphocytes # 1.9 10^3/uL (0.8-4.8); Lymphocytes % 24.8 %; Mean Corpuscular Hemoglobin 28.3 pg (28.0-34.0); Mean Corpuscular Volume 91.5 fL (81-99); Mean Platelet Volume 10.5 fL (7.4-10.4); Monocytes # 0.5 10^3/uL (0.2-0.9); Monocytes % 6.9 %; Neutrophils # 4.74 10^3/uL (1.8-7.7); Neutrophils % 62.7 %; Nucleated Red Blood Cells % 0 %; Platelet Count 246 10^3/cmm (130-400); Red Blood Count 3.53 10^6/uL (4.1-5.3); Red Cell Distribution Width 14.8 % (12.1-15.1); White Blood Count 7.6 10^3/uL (4.0-10.0)
[2021-05-06 05:36] LABS: Alanine Aminotransferase 23 U/L (0-33); Albumin Level 3.2 g/dL (3.5-5.2); Alkaline Phosphatase 135 IU/L (35-105); Aspartate Amino Transferase 15 U/L (0-32); Blood Urea Nitrogen 14 mg/dL (6-20); Carbon Dioxide 21 mmol/L (22-29); Chloride 112 mmol/L (98-107); Globulin 2.8 g/dL (1.3-4.6); Glomerular Filtration Rate 115.9 mL/min (90-130); Glucose 94 mg/dL (65-115); Osmolality Calculated 298 mOsm/kg (285-295); Sodium 144 mmol/L (136-145); Total Bilirubin 0.2 mg/dL (0.15-1.2)
[2021-05-06 07:56] VITALS: BP 114/68; PULSE 63; RESP 17; TEMP 37.1; O2SAT 99
[2021-05-06] MEDS: aspirin 81 mg EC Tablet 162 MG PO (08:06)
[2021-05-06] MEDS: famotidine 20 mg Tablet PO (08:06)
[2021-05-06] MEDS: prenatal vitamin Capsule 1 CAP PO (08:06)
[2021-05-06] MEDS: ferrous gluconate 324 mg Tablet PO (08:06)
--- NOTE | 2021-05-06 10:43 | PC.NURSE ---
Dr. Li at bedside.
[2021-05-06 11:28] VITALS: BP 123/72; PULSE 48; RESP 17; TEMP 36.9; O2SAT 98
[2021-05-06 12:12] LABS: Anti-streptolysin O 63 IU/mL (<200)
--- NOTE | 2021-05-06 12:16 | P.DS_ITS ---
Discharge Providers Date of Admission: 05/03/21 00:07 Date of Discharge: May 06, 2021 Attending Provider at Admission: Shiela Aleman MD Attending Provider at Discharge: Vargas Miller Diagnoses at Discharge Discharge Diagnosis (1) Sepsis: Status: Acute (2) Headache: Status: Acute (3) Bradycardia: Status: Acute (4) Fever: Status: Acute (5) Neck pain: Status: Acute Reason for Visit Reason for Visit: Severe Headache Hospital Course Hospital Course Pleasant 30-year-old lady post with a history of preeclampsia, had a v aginal delivery 2 days prior to admission and [facility], had an epidural catheter in place which was removed on day prior to admission. She was admitted after presenting with complaints of headache, neck stiffness, meeting criteria for sepsis with leukocytosis 14.6, fever reported, although remained afebrile here. She was empirically treated with vancomycin, cefepime, due to concern for possible bacterial meningitis. CSF studies were obtained showing WBC 2397, 1 RBC, glucose 50, protein 100. Gram stain with PMNs, no organisms. Culture so far without growth. Her symptoms have been improving, and today she is feeling much better. She requested to go home. Discussed with her that the CSF culture so far is not finalized yet, however, as she is feeling better we could let her go while empirically continuing antibiotics with Augmentin and Levaquin discussed with her. We discussed that in case there is change on CSF culture antibiotics may need to change. We also discussed option of holding off antibiotics entirely, however, at this time she would prefer to continue empirically. She has been dumping her pumped breast milk so far. We will continue this until she completes antibiotic course. Discussed with her also she is currently on aspirin which appears was started for her by her other physician due to prior history of preeclampsia. Discussed with her to avoid br east-feeding while on aspirin, discuss further with her doctor. She states that she was told to stop the aspirin after delivery and is aware not to breast-feed while on it. Incidentally notable noted to have bradycardia, heart rate down as low as 46, mostly staying 50s-60s, which appears to be mostly asymptomatic. Has history of palpitations. Due to this we are requesting for her to be set up with a heart monitor. Physical Exam Const: COMMON NORMALS: no acute distress and patient oriented x3 OTHER: Comfortable, pleasant, conversant, feels ready for discharge home. HENMT: COMMON NORMALS: oropharynx normal Neck/C-Spine: COMMON NORMALS: no JVD Resp: COMMON NORMALS: normal respiratory effort and clear to auscultation bilaterally AUSCULTATION: clear to auscultation bilaterally Cardio: COMMON NORMALS: no JVD, regular rhythm, S1 normal heart sound present, S2 normal heart sound present and No murmurs present (Cardio) RHYTHM: regular rhythm HEART SOUNDS: S1 normal heart sound present and S2 normal heart sound present GI: COMMON NORMALS: Normal to inspection, nondistended, normoactive bowel sounds present, Soft to palpation and non-tender PALPATION: Yes Soft to palpation Extremity: COMMON NORMALS: no joint enlargement and no pedal edema Neuro: COMMON NORMALS: patient oriented x3 and moves all extremities Skin: COMMON NORMALS: no rashes or lesions noted GENERAL SKIN EXAM: no rashes or lesions noted Discharge Data Data Completed and Pending: Completed Studies During Hospitalization Category Date Time Status CT abdomen pelvis wo con [id number] Rout ine Cat Scan 05/03/21 11:[address] head wo con* [id number] Urgent Cat Scan 05/02/21 20:[address] lumbar spine w o con* [id number] Urgen t Cat Scan 05/02/21 20:25 Completed FL guided lumbarp unc dx* [id number] Rout ine Exams 05/03/21 11:01 Completed XR chest 1V morenita ble [id number] Urgent Exams 05/02/21 19:43 Completed CV echo complete* [id number] Routine Ultrasound 05/05/21 12:05 [place] [id number] Routin e Ultrasound 05/03/21 11:29 Completed US pelvic complet e* [id number] Routine Ultrasound 05/03/21 01:09 Completed Pending at discharge Category Date Time Status Blood Culture Sta t Lab 05/02/21 21:28 Results Complete Blood Co unt w/Auto AM LABS Lab 05/07/21 04:00 Ordered Comprehensive Met abolic Panel AM LA BS Lab 05/07/21 04:00 Ordered Miscellaneous Lianne t Routine Lab 05/03/21 16:00 Received Miscellaneous Lianne t Routine Lab 05/03/21 16:00 Received Respiratory Viral Panel PCR Stat Lab 05/04/21 10:45 Received Streptococcus Cul ture Group A Stat Lab 05/04/21 12:30 Results Labs from last 24 hours 05/06/21 05/06/21 05/04/21 04:35 04:35 03:21 WBC 7.6 RBC 3.53 L Hgb 10.0 L Hct 32.3 L MCV 91.5 MCH 28.3 MCHC 31.0 RDW 14.8 Plt Count 246 MPV 10.5 H Neut % (Auto) 62.7 Lymph % (Auto) 24.8 [place] % (Auto) 6.9 Eos % (Auto) 4.0 Baso % (Auto) 0.7 Neut # (Auto) 4.74 Lymph # (Auto) 1.9 [place] # (Auto) 0.5 Eos # (Auto) 0.3 Baso # (Auto) 0.1 Nucleated RBC % (a uto) 0 Nucleated RBCs # 0.0 Sodium 144 Potassium 4.0 Chloride 112 H Carbon Dioxide 21 L Anion Gap 15.0 BUN 14 Creatinine 0.6 GFR Calculation 115.9 Glucose 94 Calculated Osmolal ity 298 H Calcium 8.0 L Total Bilirubin 0.2 AST 15 ALT 23 Alkaline Phosphata se 135 H Total Protein 6.0 L Albumin 3.2 L Globulin 2.8 Anti-Streptolysin O Ab 63 Vitals: Last Vital Signs Temp 98.4 F 05/06/21 11:28 Pulse 48 L 05/06/21 11:28 Resp 17 05/06/21 11:28 BP 123/72 05/06/21 11:28 Pulse Ox 98 05/06/21 11:28 Discharge Plan Discharge Patient Disposition: Home Condition: Stable Prescriptions: New Augmentin 875-125 mg tablet 1 tab PO BID Qty: 14 RF: 0 Continued prenat.vits,maicol,wnb-tore-qyizk Tablet 1 tab PO DAILY Qty: 30 RF: 12 aspirin 81 mg tablet,delayed release (DR/EC) 162 mg PO DAILY RF: 0 Tylenol 325 mg Tablet 325 - 650 mg PO QID PRN (Reason: Pain) RF: 0 Discontinued ibuprofen 200 mg Tablet 200 mg PO Q6H PRN (Reason: FEVER/PAIN) RF: 0 Discharge Orders: Discharge Order (Routine); Ordered 05/06/21 Ordered By: Vargas Miller Other Ambulatory Orders: CA cardiac event monitor (Routine) Timeframe: 1 Day Facility: [facility] - Location: Cardiac Diagnostic Laboratory Ordered By: Vargas Miller Referrals: Jim Goyal NP [Primary Care Provider] - 05/10/21 10:30 am Genia Taylor FNP [Nurse Practitioner] - 05/08/21 9:00 am (WILL GET CA MONITOR AT APPOINTMENT WITH GENIA BAEZ) Discharge Diet: Regular Discharge Activity: Increase activity as tolerated Patient Instructions: Amoxicillin/Clavulanate Potassium (By mouth), Levofloxacin (By mouth) Activity Restrictions/Additional Instructions: Please do not breast-feed while taking aspirin. Please confirm with your doctor regarding how long they want to take aspirin, and discontinue aspirin before starting breast-feeding. Please complete antibiotic course for 7 days after discharge. You may be contacted in case there are changes on culture and changes are needed to antibiotic. In terms of antibiotic, after discontinuation breast-feeding should be safe about 2 days later. Avoid taking ibuprofen while breast-feeding. In case you experience high fever, severe headache, or any other concerning symptoms, please seek medical attention. WILL GET CA MONITOR AT [facility] ON MAY 08 AT 9:00 AM WITH APPOINTMENT WITH GENIA Pelletier Attestations Time Spent in Discharge Care*: greater than 30 min Quality Metrics Clinical Quality Measures During this hospital stay, did patient experience: None Coding Level of Care Code Acute [facility] note Exam Comprehensive Diagnoses Sepsis A41.9 Headache R51.9 Bradycardia R00.1 Fever R50.9 Neck pain M54.2
[2021-05-06 13:55] VITALS: BP 123/72; PULSE 58; RESP 18; TEMP 36.9; O2SAT 98
--- NOTE | 2021-05-06 13:57 | PC.NURSE ---
IV removed at this time. Patient tolerated well. Reviewed patient discharge with patient at this time. Patient verbalized understanding of discharge follow up appointments and medications changes Patient is A&Ox3. Respirations even and non-labored on room air. Patient is A&Ox3. Respirations even and non-labored on room air. Patient wheel chaired to private car.
[2021-05-08 16:23] LABS: Adenovirus Not Detected (Not Detected); Human Metapneumovirus Not Detected (Not Detected); Human Parainflu Virus 1 Not Detected (Not Detected); Human Parainflu Virus 2 Not Detected (Not Detected); Human Parainflu Virus 3 Not Detected (Not Detected); Human Rsv A Not Detected (Not Detected); Influenza A Not Detected (Not Detected); Influenza B Not Detected (Not Detected); Rhinovirus/Enterovirus Not Detected (Not Detected)
== END 2021-05-06 14:00 | disposition home or self-care (01) | DRG 776 ==
LOC: ER 23:03 → ICU 05-03 07:52 → MEDSURG 05-04 16:11
PROVIDERS: Student in an Organized Health Care Education/Training Program; Admitting Provider Internal Medicine; Emergency Provider Family Medicine; Family Provider Nurse Practitioner Family; PCP Nurse Practitioner Family; Visit Provider Internal Medicine
DX: O85 Puerperal sepsis (principal); G00.9 Bacterial meningitis, unspecified; F17.210 Nicotine dependence, cigarettes, uncomplicated; M54.2 Cervicalgia; R25.2 Cramp and spasm; R00.1 Bradycardia, unspecified
CPT/HCPCS: 36415; 62270; 62328; 70450; 71045; 72131; 74176; 76856; 80053; 80202; 80306; 80500; 81001; 82042; 82945; 83540; 83550; 83605; 84145; 84157; 84315; 84443; 85025; 85651; 86060; 86140; 86403; 87040; 87070; 87075; 87081; 87086; 87205; 87449; 87641; 87804; 87880; 89050; 93005; 93306; 93970; 96365; 96367; 96372; 96375; 99285; J0692; J0696; J1170; J1644; J2060; J2270; J3370; J7030; J7050

== ENCOUNTER 2022-05-28 11:17 | Outpatient (CLI) | payer MEDICAID, SELFPAY ==
--- NOTE | 2022-05-28 13:00 | US_ITS ---
WS: [id number] EARLY OBSTETRICAL ULTRASOUND (<14 WEEKS). HISTORY: Z34.83 - Encounter for supervision of other normal . COMPARISON: None. Single intrauterine gestational sac is identified. Cardiac activity at 114 BPM. Barton-rump length tom sures 0.6 cm which corresponds to a gestation of 6w3d. Normal-appearing yolk sac and amnion demonstra amadou. Small subchorionic hemorrhage. Subchorionic hemorrhage measures 1.2 x 1.2 cm. No free fluid. Normal size ovaries with no mass. Cervix is closed. US/US OB transvaginal [id number] IMPRESSION: 1. Single intrauterine gestation of 6 weeks 3 days with an EDC of 01/18/2023. 2. Very small subchorionic hemorrhage.
== END 2022-05-28 11:18 | disposition home or self-care (01) ==
LOC: RAD 11:19
PROVIDERS: PCP Obstetrics & Gynecology; Visit Provider Obstetrics & Gynecology
DX: Z34.83 Encounter for supervision of other normal pregnancy, third trimester (principal)
CPT/HCPCS: 76817

== ENCOUNTER → 2022-07-09 08:07 | Outpatient (BNVA) | payer MEDICAID, SELFPAY | PROVIDERS: PCP Obstetrics & Gynecology; Visit Provider Obstetrics & Gynecology | DX: Z34.90 Encounter for supervision of normal pregnancy, unspecified, unspecified trimester (principal) | CPT/HCPCS: 80307; 81000; 87086; 87491; 87591; 87624; 87661 ==

== ENCOUNTER → 2022-08-06 09:52 | Outpatient (BNVA) | payer MEDICAID, SELFPAY | PROVIDERS: PCP Obstetrics & Gynecology; Visit Provider Obstetrics & Gynecology | DX: O09.899 Supervision of other high risk pregnancies, unspecified trimester (principal); O99.333 Smoking (tobacco) complicating pregnancy, third trimester; Z64.1 Problems related to multiparity; O09.299 Supervision of pregnancy with other poor reproductive or obstetric history, unspecified trimester; Z3A.00 Weeks of gestation of pregnancy not specified | CPT/HCPCS: 81000 ==

== ENCOUNTER 2022-10-02 11:27 | Outpatient (CLI) | payer MEDICAID, SELFPAY ==
[2022-10-02 12:13] LABS: Basophils % 0.3 %; Eosinophils # 0.1 10^3/uL (0.0-0.8); Eosinophils % 1.3 %; Hematocrit 33.7 % (37.0-47.0); Hemoglobin 10.6 g/dL (11.5-15.3); Lymphocytes # 1.4 10^3/uL (0.8-4.8); Lymphocytes % 15.4 %; Mean Corpuscular HGB Conc 31.5 g/dL (30.0-36.0); Mean Corpuscular Hemoglobin 28.6 pg (28.0-34.0); Mean Corpuscular Volume 90.8 fl (81-99); Mean Platelet Volume 9.9 fL (7.4-10.4); Monocytes # 0.6 10^3/uL (0.2-0.9); Monocytes % 6.3 %; Neutrophils # 6.87 10^3/uL (1.8-7.7); Neutrophils % 75.9 %; Nucleated Red Blood Cells % 0 %; Platelet Count 277 10^3/cmm (130-400); Red Blood Count 3.71 10^6/uL (4.1-5.3); Red Cell Distribution Width 15.9 % (12.1-15.1); White Blood Count 9.1 10^3/uL (4.0-10.0)
[2022-10-02 12:21] LABS: Amphetamines Screen Urine Negative (Negative); Barbiturates Screen Urine Negative (Negative); Benzodiazepines Screen Urine Negative (Negative); Cocaine Screen Urine Negative (Negative); Opiate Screen Urine Negative (Negative); PCP Screen Urine Negative (Negative); THC Screen Urine Negative (Negative)
[2022-10-02 12:46] LABS: HIV 1 & 2 Antibody Non-Reactive (Non-Reactiv); HIV 1 & 2 Antigen Non-Reactive (Non-Reactiv); Rubella IgG 24.8 IU/mL (0.0-10.0)
[2022-10-02 12:47] LABS: Hepatitis B Surface Antigen Non-Reactive (Nonreactive); Hepatitis C Virus Antibody Non-Reactive (Nonreactive)
[2022-10-03 08:39] LABS: Add Urine Microscopic? YES; Bilirubin Urine Neg (Negative); Blood Urine Neg (Negative); Glucose Urine UA Norm (Normal); Ketones Urine Negative (Negative); Nitrate Urine Negative (Negative); Protein Urine Neg (Negative); Urine Appearance Hazy (CLEAR); Urine Color Yellow (Yellow); Urobilinogen Urine Norm (Negative); pH Urine 6.5 (5-7)
[2022-10-03 08:40] LABS: Leukocyte Esterase Urine Trace (Negative)
[2022-10-03 08:44] LABS: Bacteria Urine 2+ /hpf; RBC Urine 0-4 /hpf (0-2)
[2022-10-03 09:06] LABS: Rapid Plasma Reagin Syphilis Nonreactive (Nonreactive)
== END 2022-10-02 11:28 | disposition home or self-care (01) ==
LOC: LAB 11:35
PROVIDERS: PCP Obstetrics & Gynecology; Visit Provider Obstetrics & Gynecology
DX: O09.899 Supervision of other high risk pregnancies, unspecified trimester (principal)
CPT/HCPCS: 36415; 80306; 81001; 84315; 84443; 85025; 86592; 86762; 86803; 86850; 86900; 87086; 87340; 87806

== ENCOUNTER → 2022-12-11 14:51 | Outpatient (BNVA) | payer MEDICAID, SELFPAY | PROVIDERS: PCP Obstetrics & Gynecology; Visit Provider Nurse Practitioner Women's Health | DX: O09.899 Supervision of other high risk pregnancies, unspecified trimester (principal); Z3A.00 Weeks of gestation of pregnancy not specified | CPT/HCPCS: 81000; 82950; 85025 ==

== ENCOUNTER → 2022-12-17 12:38 | Outpatient (BNVA) | payer MEDICAID, SELFPAY | PROVIDERS: PCP Obstetrics & Gynecology; Visit Provider Obstetrics & Gynecology | DX: O09.899 Supervision of other high risk pregnancies, unspecified trimester (principal) | CPT/HCPCS: 81000; 87086 ==

== ENCOUNTER 2022-12-25 15:55 | Outpatient (CLI) | payer MEDICAID, SELFPAY ==
--- NOTE | 2022-12-25 15:45 | US_ITS ---
WS: [id number] LIMITED OBSTETRICAL ULTRASOUND HISTORY: O09.899 - Supervision of other high risk pregnancies COMPARISON: 05/28/2022, 09/01/2022 Presentation: Vertex. Cervix: Obscured by the head. Placenta: Anterior, no previa or abruption. Grade: 1 HEART: FHR of 120 BPM. measurements: BPD = 8.5 cm = 34w0d; 5th percentile HC = 33.4 cm = 38w2d; 63rd percentile AC = 32.8 cm = 36w5d; 66 percentile FL = 7.4 cm = 38w0d; 81st percentile SUKHDEEP: 9.7 cm; single deepest vertical pocket 5.5 cm. EFW: 3055 g; 74 %. AGA by ultrasound: 37w3d MIC by ultrasound: 01/12/2023 US/[place] [id number] IMPRESSION: 1. Single intrauterine gestation of 37 weeks 3 days with an EDC of 01/12/2023. 2. Appropriate growth since the first trimester ultrasound. 3. head is measuring at the 5th percentile but this may be due to diffic ulty obtaining accurate measurements due to position of the head. 4. Estimated weight at the 74th percentile. 5. heart rate 120 bpm is low normal.
== END 2022-12-25 15:56 | disposition home or self-care (01) ==
LOC: RAD 16:03
PROVIDERS: PCP Obstetrics & Gynecology; Visit Provider Obstetrics & Gynecology
DX: O09.899 Supervision of other high risk pregnancies, unspecified trimester (principal); Z3A.37 37 weeks gestation of pregnancy
CPT/HCPCS: 76816; 81000; 87081; 87086

== ENCOUNTER → 2023-01-01 10:00 | Outpatient (BNVA) | payer MEDICAID, SELFPAY | PROVIDERS: PCP Obstetrics & Gynecology; Visit Provider Obstetrics & Gynecology | DX: O09.899 Supervision of other high risk pregnancies, unspecified trimester (principal); Z3A.00 Weeks of gestation of pregnancy not specified | CPT/HCPCS: 81000 ==

== ENCOUNTER 2023-01-06 21:13 | Outpatient (CLI) | payer MEDICAID, SELFPAY ==
[2023-01-06 21:10] VITALS: BMI 34.4
[2023-01-06 21:28] VITALS: BP 126/65; PULSE 78; TEMP 35.6
[2023-01-06 21:51] VITALS: RESP 16; TEMP 36.6
[2023-01-06 22:13] VITALS: BP 126/66; PULSE 79
[2023-01-06 22:14] VITALS: BP 126/66; PULSE 79; RESP 17; TEMP 36.6
== END 2023-01-06 22:14 | disposition home or self-care (01) ==
LOC: OPOB 21:14 → OBGYN 21:16
PROVIDERS: PCP Obstetrics & Gynecology; Visit Provider Obstetrics & Gynecology
DX: O26.899 Other specified pregnancy related conditions, unspecified trimester (principal); Z3A.00 Weeks of gestation of pregnancy not specified
CPT/HCPCS: 59025; 99211

== ENCOUNTER → 2023-01-08 07:24 | Outpatient (BNVA) | payer MEDICAID, SELFPAY | PROVIDERS: PCP Obstetrics & Gynecology; Visit Provider Obstetrics & Gynecology | DX: O09.899 Supervision of other high risk pregnancies, unspecified trimester (principal); R82.90 Unspecified abnormal findings in urine; Z3A.00 Weeks of gestation of pregnancy not specified | CPT/HCPCS: 81000; 87086 ==

== ENCOUNTER 2023-01-09 23:43 | Inpatient (IN) | payer MEDICAID, SELFPAY ==
[2023-01-09] VITALS (19 sets, daily range): BP systolic 105–138; BP diastolic 57–85; PULSE 56–75; RESP 16; BMI 33.8
--- NOTE | 2023-01-09 20:17 | PM.OBGYHP ---
Providers/Chief Complaint Admitting Physician: Mason MILLER Primary REHABILITATION PROGRAM MANAGER: Wilber BAKER Primary Care Provider: Sarah Merino MD Chief Complaint: [place] HPI REHABILITATION PROGRAM MANAGER History of Present Illness Alma Sapp is a 32 year old female G8, P5 with LMP 03/2022 MIC 219 2022 x 6-week ultrasound. Patient presently 38.5 weeks gestation admitted to labor and delivery for induction of labor due to oligohydramnios. Ultrasound dated 01/08/2023 biophysical profile with SUKHDEEP 4 cm. Patient was advised to proceed to labor and delivery for induction of labor but patient did not show until today 01/09/2023 for induction. Induction of labor reviewed with possibility Cytotec for cervical ripening. EFM?category 1. Nursing staff pelvic exam, cervix 2 cm / 20%/-3 vertex presentation. Present Details Date of Last Menstrual Period: 07/06/20 Calculated Date of Delivery: 04/12/21 Gestational Age Based on Last Menstrual Period: 131 Review of Systems General: Reports: 10 or more systems reviewed and unremarkable except in HPI and below Medications/Allergies Home Medications Medication Instructions Recorded Confirmed Last Taken Type prenat.vits,maicol,fop-jpvb-itdux 1 tab PO DAILY #30 tabs 11/01/20 01/01/23 Unknown Rx ferrous sulfate 325 mg (65 mg 325 mg PO TID 12/25/22 01/01/23 Unknown History iron) tablet,delayed release Allergies Allergy/AdvReac Type Severity Reaction Status Date / Time butorphanol [Stadol] Allergy Severe anaphylacti Verified 01/01/23 10:01 c latex Allergy swelling Verified 01/01/23 10:01 PFSH REHABILITATION PROGRAM MANAGER PFSH: Medical History No pertinent past medical history neghx: htn,dm,thyroid,dvt/pe,herpes denies partner with herpes Vaginal delivery 5 vaginal deliveries Surgical History Hx of adenoidectomy Family History Mother Heart disease Father Hypertension Family/Other Thyroid disease Maternal Aunt Daughter Thyroid disease hypothyroidism Denies family history of Colon cancer Ovarian cancer Diabetes Hypercholesteremia Breast cancer Uterine cancer Stroke Social History (Reviewed 01/09/23 @ 20:23 by MERLIN Sol Smoking and tobacco status: current every day smoker Other Female Reproductive History: Hx Age of Menarche: 12 Duration of menses: 6-7 days Sexual History: STD History Comment: none History History History 8 Term 5 0 Miscarriages/Ectopic 2 Living Children 5 Care MIC Calculator Estimated Delivery Date Method Current WG Current Estimate 01/18/23 Ultrasound #1 38w 5d Other Estimates 12/03/22 LMP (Uncertain) 45w 2d Vitals/I&O/Wt Last Vital Signs Pulse 75 01/09/23 20:07 BP 121/78 01/09/23 20:07 Physical Exam Narrative: 32-year-old female alert and orient x3 no acute distress HENMT: HEAD & SCALP: normal to inspection and normocephalic Resp: COMMON NORMALS: normal respiratory effort and clear to auscultation bilaterally Cardio: COMMON NORMALS: regular rate and regular rhythm Back/Pelvis: COMMON NORMALS: no CVA tenderness OTHER: Gravid Extremity: COMMON NORMALS: normal to inspection, no calf tenderness and no pedal edema Neuro: COMMON NORMALS: patient oriented x3, CN's II-XII intact bilaterally and moves all extremities A&P Assessment and plan (1) Supervision of other high-risk : Plan A. 1. 38.5-week IUP with oligohydramnios 2. Grand multiparity 3. GBS negative 4. Tobacco use during 5. History of anemia 6. History of preeclampsia first P. Admit to labor and delivery for cervical ripening with Cytotec followed by induction with Pitocin if needed. Attestations Medical Necessity Statement*: Induction of labor and management due to oligohydramnios Coding Level of Care Code Acute Code for Chg Fwd Diagnoses Supervision of other high-risk O09.899
[2023-01-09] MEDS: miSOPROStol 100 mcg tablet 25 MCG VAGINAL (22:52)
[2023-01-10] VITALS (35 sets, daily range): BP systolic 97–126; BP diastolic 52–71; PULSE 54–85; RESP 16; TEMP 35.8–37.1; O2SAT 95–98
[2023-01-10 00:54] LABS: Basophils % 0.3 %; Eosinophils # 0.1 10^3/uL (0.0-0.8); Eosinophils % 1.1 %; Hematocrit 32.7 % (37.0-47.0); Lymphocytes % 20.4 %; Mean Corpuscular HGB Conc 30.6 g/dL (30.0-36.0); Mean Corpuscular Hemoglobin 27.2 pg (28.0-34.0); Mean Corpuscular Volume 88.9 fl (81-99); Monocytes # 0.7 10^3/uL (0.2-0.9); Monocytes % 6.6 %; Neutrophils # 7.09 10^3/uL (1.8-7.7); Neutrophils % 71.1 %; Nucleated Red Blood Cells % 0 %; Platelet Count 261 10^3/cmm (130-400); Red Blood Count 3.68 10^6/uL (4.1-5.3); Red Cell Distribution Width 20.4 % (12.1-15.1)
[2023-01-10] MEDS: dextrose 5%-lactated ringers 1,000 ML 125 ML IV (03:00)
--- NOTE | 2023-01-10 03:37 | P.PN_ITS ---
WORKERS COMPENSATION ADJUSTER Subjective Subjective: Interval history: Pt seen, tolerating contractions q 1-3 . Cx- 4cm/80%/-1 Vtx. Labor: Station: -3 Amniotic Membrane Status: Intact Monitor Mode: External Contraction Pattern: Irregular Vitals/I&O/Wt Last Vital Signs Temp 97.9 F 01/10/23 03:34 Pulse 57 L 01/10/23 03:20 Resp 16 01/09/23 19:58 BP 107/62 01/10/23 03:20 O2 Del Method 01/10/23 02:37 Weight last 48 hrs Weight 97.976 kg Data 01/10/23 00:30 A&P Assessment and plan (1) Supervision of other high-risk : Plan A. 38.6 wks IUP with oligohydramnious Grad-Multiparity Smoker P. Continue care, pain med if needed. Attestations Medical Necessity Statement*: Continue care for Labor management. Coding Level of Care Code Acute Code for Chg Fwd Diagnoses Supervision of other high-risk O09.899
--- NOTE | 2023-01-10 05:27 | P.PN_ITS ---
CLINICAL LABORATORY MANAGER Subjective Subjective: Interval history: Pt feeling pressure Nursing exam 7cm/80%/-1. Labor: Station: -1 Amniotic Membrane Status: Ruptured Monitor Mode: External Contraction Pattern: Irregular Vitals/I&O/Wt Last Vital Signs Temp 97.9 F 01/10/23 03:34 Pulse 64 01/10/23 05:20 Resp 16 01/09/23 19:58 BP 118/56 01/10/23 05:20 O2 Del Method 01/10/23 02:37 Weight last 48 hrs Weight 97.976 kg Data 01/10/23 00:30 A&P Assessment and plan (1) Supervision of other high-risk : P. Anticipate delivery soon. Attestations Medical Necessity Statement*: Management of labor. Coding Level of Care Code Acute Code for Chg Fwd Diagnoses Supervision of other high-risk O09.899
[2023-01-10] MEDS: oxytocin 30 UNIT/500 ML BAG 600 UNIT IV (05:47)
--- NOTE | 2023-01-10 05:55 | PM.DELIVERY ---
Delivery Note: Date of delivery: January 10, 2023 Pre-delivery diagnoses: 1. 38.6 wk IUP 2. Oligohydramnious 3 grand multiparity 4 GBS negative Post-delivery diagnoses: Same Procedure: 32-year-old G8, P6 delivered a viable male infant via after prolonged bradycardia. The cervix was manipulated to allow the vertex to present. Vertex presented in OP presentation and was delivered over the perineum, the patient's thighs were flexed, and the anterior and posterior shoulders with the remainder the baby's body followed. A lower body cord and left leg cord were easily reduced. Spontaneous cry resulted. The umbilical cord was clamped x2 and cut. The baby was placed on the maternal chest for bonding. The baby was dried and stimulated by nursing staff and evaluated. The umbilical cord was noted to have 3 vessels. Cord pH and cord blood was drawn and handed off. The uterus was massaged and the placenta presented in a Spence presentation with trailing membranes. Pitocin and IV fluid was given in a bolus manner. The uterus was massaged and firmed well. The uterus expressed, vaginal vault inspected and few clots removed. No lacerations noted. Mother and are both in stable and satisfactory condition Apgars 8/8 weight 8 pounds complications bradycardia Op report anesthesia: None Delivering Physician: Gina Cuevas DO Estimated blood loss (mL): 300 Findings: Normal male infant Delivery: Post-Delivery Status: Stable History History History 8 Term 5 0 Miscarriages/Ectopic 2 Living Children 5 A&P Assessment and plan (1) Supervision of other high-risk : P. care Coding Level of Care Code Acute Code for Chg Fwd Diagnoses Supervision of other high-risk O09.899
[2023-01-10] MEDS: prenatal vitamin Capsule 1 CAP PO (09:49)
[2023-01-10] MEDS: ibuprofen 800 mg tablet PO ×2 (14:37→23:03)
[2023-01-10 17:27] LABS: Hematocrit 32.3 % (37.0-47.0); Hemoglobin 10.1 g/dL (11.5-15.3); Mean Corpuscular HGB Conc 31.3 g/dL (30.0-36.0); Mean Corpuscular Hemoglobin 27.7 pg (28.0-34.0); Mean Corpuscular Volume 88.5 fl (81-99); Mean Platelet Volume 10.3 fL (7.4-10.4); Platelet Count 243 10^3/cmm (130-400); Red Blood Count 3.65 10^6/uL (4.1-5.3); Red Cell Distribution Width 20.6 % (12.1-15.1); White Blood Count 12.8 10^3/uL (4.0-10.0)
[2023-01-11 04:40] VITALS: BP 107/68; PULSE 62; RESP 16; TEMP 36.8
[2023-01-11] MEDS: ibuprofen 800 mg tablet PO (08:14)
[2023-01-11] MEDS: prenatal vitamin Capsule 1 CAP PO (08:15)
[2023-01-11 10:00] VITALS: BP 123/72; PULSE 61; RESP 16; TEMP 36.8
--- NOTE | 2023-01-11 12:03 | P.DS_ITS ---
Discharge Providers MANAGER OF TRAINING AND DEVELOPMENT Date of Admission: 01/09/23 23:43 Date of Discharge: 01/11/23 Attending Provider at Admission: Sharee Cuevas DO Attending Provider at Discharge: Shraee Cuevas DO Primary Care Provider: Sarah Merino MD Diagnoses at Discharge Discharge Diagnosis (1) Supervision of other high-risk : Details from hospital stay: 32-year-old G8, P6 s/p viable male doing well without complaints. Patient is ambulating, voiding and breast-feeding without difficulties. Patient denies headaches blurred vision chest pain or shortness of breath. Patient is preparing for discharge. Discharge expectations and orders reviewed with patient to include no heavy lifting pushing or pulling no sex douching or tampons x6 weeks. Patient is encouraged to continue vitamins and iron which she has at home. Patient is also advised to follow-up at the clinic in 4 weeks for visit. Patient verbalizes understanding. Status: Acute Reason for Visit Reason for Visit: [place] Hospital Course Hospital Course S/p viable male patient is progressing well without complaints. VSS, afebrile Exam?unremarkable Information Peripartum Data: Infant Delivery Method: Vaginal History History History 8 Term 5 0 Miscarriages/Ectopic 2 Living Children 5 Discharge Data Studies Completed and Pending Laboratory Results WBC 12.8 10^3/uL (4.0-10.0) H 01/10/23 17:17 Corrected WBC Cancelled 01/09/23 23:31 RBC 3.65 10^6/uL (4.1-5.3) L 01/10/23 17:17 Hgb 10.1 g/dL (11.5-15.3) L 01/10/23 17:17 Hct 32.3 % (37.0-47.0) L 01/10/23 17:17 MCV 88.5 fl (81-99) 01/10/23 17:17 MCH 27.7 pg (28.0-34.0) L 01/10/23 17:17 MCHC 31.3 g/dL (30.0-36.0) 01/10/23 17:17 RDW 20.6 % (12.1-15.1) H 01/10/23 17:17 Plt Count 243 10^3/cmm (130-400) 01/10/23 17:17 MPV 10.3 fL (7.4-10.4) 01/10/23 17:17 Gran % Cancelled 01/09/23 23:31 Neut % (Auto) 71.1 % 01/10/23 00:30 Lymph % (Auto) 20.4 % 01/10/23 00:30 Clayton % (Auto) 6.6 % 01/10/23 00:30 Eos % (Auto) 1.1 % 01/10/23 00:30 Baso % (Auto) 0.3 % 01/10/23 00:30 Neut # (Auto) 7.09 10^3/uL (1.8-7.7) 01/10/23 00:30 Lymph # (Auto) 2.0 10^3/uL (0.8-4.8) 01/10/23 00:30 Clayton # (Auto) 0.7 10^3/uL (0.2-0.9) 01/10/23 00:30 Eos # (Auto) 0.1 10^3/uL (0.0-0.8) 01/10/23 00:30 Baso # (Auto) 0.0 10^3/uL (0.0-0.1) 01/10/23 00:30 Absolute Gran (auto) Cancelled 01/09/23 23:31 Nucleated RBC % (auto) 0 % 01/10/23 00:30 Nucleated RBCs # 0.0 /100WBC 01/10/23 00:30 Cord ABG pH Cancelled 01/10/23 05:53 Cord ABG pCO2 Cancelled 01/10/23 05:53 Cord ABG pO2 Cancelled 01/10/23 05:53 Cord ABG HCO3 Cancelled 01/10/23 05:53 Cord ABG Total CO2 Cancelled 01/10/23 05:53 Cord ABG O2 Sat Cancelled 01/10/23 05:53 Vitals Last Vital Signs Temp 98.2 F 01/11/23 04:40 Pulse 62 01/11/23 04:40 Resp 16 01/11/23 04:40 BP 107/68 01/11/23 04:40 Pulse Ox 98 01/10/23 22:55 O2 Del Method 01/10/23 22:55 Discharge Plan Discharge Patient Disposition: Home Prescriptions: Continued prenat.vits,maicol,rjk-jvis-olcto Tablet 1 tab PO DAILY Qty: 30 12RF ferrous sulfate 325 mg (65 mg iron) tablet,delayed release (DR/EC) 325 mg PO TID Discharge Orders: Discharge Order (Routine); Ordered 01/11/23 Ordered By: Sharee Cuevas Discharge Diet: Usual diet and Regular Discharge Activity: Resume usual activity and Increase activity as tolerated Patient Instructions: Depression (DC), Bleeding (DC), Preeclampsia and Eclampsia After Delivery (GEN), OB Food/Drug Interaction Guide, OB Care at Home, Opioid Safety, Abnormal Bleeding Assessment: 1. 32-year-old G8, P6 2. S/p viable male 3. Oligohydramnios Plan of Treatment: 1. Discharge to home 2. Follow-up in 4 weeks for visit, patient to call and schedule. Discharge Attestations MANAGER OF TRAINING AND DEVELOPMENT Time Spent in Discharge Care*: less than 30 min Coding Level of Care Code Acute Code for Chg Fwd Diagnoses Supervision of other high-risk O09.899
[2023-01-11 14:00] VITALS: BP 120/69; PULSE 72; RESP 16; TEMP 36.7
== END 2023-01-11 14:22 | disposition home or self-care (01) | DRG 807 ==
LOC: OPOB 01-12 14:58
PROVIDERS: Admitting Provider Obstetrics & Gynecology; PCP Obstetrics & Gynecology; Visit Provider Obstetrics & Gynecology
DX: O41.03X0 Oligohydramnios, third trimester, not applicable or unspecified (principal); Z37.0 Single live birth; O76 Abnormality in fetal heart rate and rhythm complicating labor and delivery; O69.82X0 Labor and delivery complicated by other cord entanglement, without compression, not applicable or unspecified; O99.334 Smoking (tobacco) complicating childbirth; F17.200 Nicotine dependence, unspecified, uncomplicated; Z3A.38 38 weeks gestation of pregnancy; Z87.59 Personal history of other complications of pregnancy, childbirth and the puerperium
CPT/HCPCS: 12345; 36415; 59409; 85025; 85027; J2590; J7121

== ENCOUNTER 2023-07-24 11:07 | Outpatient (CLI) | payer MEDICAID, SELFPAY ==
--- NOTE | 2023-07-24 11:18 | MM_ITS ---
WS: [id number] BILATERAL 3D TOMOSYNTHESIS DIGITAL DIAGNOSTIC MAMMOGRAPHY WITH CAD CLINICAL INFORMATION: N64.59 - Other signs and symptoms in breast HISTORY: Soft lump in RIGHT axilla x1 year COMPARISON: Baseline TECHNIQUE: Bilateral CC, MLO, and ML views. FINDINGS: Scattered fibroglandular densities bilaterally. A few normal-appearing lymph nodes in the RIGHT axill a. Palpable marker in the RIGHT axilla with underlying fat. Suggestion of a fat attenuation lesion li wilian lipoma in this area measuring 8.2 x 6.5 cm. Ultrasound is pending at this area. Breasts are otherwise unremarkable in appearance. ULTRASOUND BREAST RIGHT TECHNIQUE: Ultrasound right breast focused area of concern. CLINICAL INFORMATION: N64.59 - Other signs and symptoms in breast FINDINGS: Ultrasound of the RIGHT axilla in the area of concern. Echogenic well-circumscribed lesion compatible with incidental benign lipoma measuring 7.5 x 3.9 x 8.1 cm as seen on the mammogram. Findings are be nign. IMPRESSION: MM/[place] [id number] BI-RADS: 2-Benign FOLLOW UP: Age 38 Recommend annual screening mammography age 40
--- NOTE | 2023-07-24 11:30 | US_ITS ---
WS: [id number] BILATERAL 3D TOMOSYNTHESIS DIGITAL DIAGNOSTIC MAMMOGRAPHY WITH CAD CLINICAL INFORMATION: N64.59 - Other signs and symptoms in breast HISTORY: Soft lump in RIGHT axilla x1 year COMPARISON: Baseline TECHNIQUE: Bilateral CC, MLO, and ML views. FINDINGS: Scattered fibroglandular densities bilaterally. A few normal-appearing lymph nodes in the RIGHT axill a. Palpable marker in the RIGHT axilla with underlying fat. Suggestion of a fat attenuation lesion li wilian lipoma in this area measuring 8.2 x 6.5 cm. Ultrasound is pending at this area. Breasts are otherwise unremarkable in appearance. ULTRASOUND BREAST RIGHT TECHNIQUE: Ultrasound right breast focused area of concern. CLINICAL INFORMATION: N64.59 - Other signs and symptoms in breast FINDINGS: Ultrasound of the RIGHT axilla in the area of concern. Echogenic well-circumscribed lesion compatible with incidental benign lipoma measuring 7.5 x 3.9 x 8.1 cm as seen on the mammogram. Findings are be nign. IMPRESSION: US/US soft tissue/extremity [id number] BI-RADS: 2-Benign FOLLOW UP: Age 38 Recommend annual screening mammography age 40
== END 2023-07-24 11:08 | disposition home or self-care (01) ==
LOC: RAD 11:09
PROVIDERS: PCP Obstetrics & Gynecology; Visit Provider Nurse Practitioner Women's Health
DX: M79.89 Other specified soft tissue disorders (principal); N64.59 Other signs and symptoms in breast
CPT/HCPCS: 76882; 77062; G0279

== ENCOUNTER → 2023-09-11 12:47 | Outpatient (BNVA) | payer MEDICAID, SELFPAY | PROVIDERS: PCP Obstetrics & Gynecology; Visit Provider Nurse Practitioner Women's Health | DX: Z32.00 Encounter for pregnancy test, result unknown (principal); Z34.90 Encounter for supervision of normal pregnancy, unspecified, unspecified trimester; O09.899 Supervision of other high risk pregnancies, unspecified trimester; O09.529 Supervision of elderly multigravida, unspecified trimester; O09.891 Supervision of other high risk pregnancies, first trimester; O99.333 Smoking (tobacco) complicating pregnancy, third trimester; Z30.09 Encounter for other general counseling and advice on contraception | CPT/HCPCS: 80307; 81000; 81025; 85027; 86592; 86762; 86803; 86850; 86900; 87086; 87340; 87806 ==

== ENCOUNTER → 2023-09-17 11:17 | Outpatient (BNVA) | payer MEDICAID, SELFPAY | PROVIDERS: PCP Obstetrics & Gynecology; Visit Provider Obstetrics & Gynecology | DX: Z36.87 Encounter for antenatal screening for uncertain dates (principal) | CPT/HCPCS: 76801 ==

== ENCOUNTER → 2023-11-02 13:00 | Outpatient (BNVA) | payer MEDICAID, SELFPAY | PROVIDERS: PCP Obstetrics & Gynecology; Visit Provider Obstetrics & Gynecology | DX: O09.899 Supervision of other high risk pregnancies, unspecified trimester (principal); Z3A.00 Weeks of gestation of pregnancy not specified | CPT/HCPCS: 81000; 87491; 87591 ==

== ENCOUNTER → 2023-12-01 13:30 | Outpatient (BNVA) | payer MEDICAID, SELFPAY | PROVIDERS: PCP Obstetrics & Gynecology; Visit Provider Obstetrics & Gynecology | DX: Z34.90 Encounter for supervision of normal pregnancy, unspecified, unspecified trimester (principal) | CPT/HCPCS: 76805 ==

== ENCOUNTER → 2023-12-31 11:30 | Outpatient (BNVA) | payer MEDICAID, SELFPAY | PROVIDERS: PCP Obstetrics & Gynecology; Visit Provider Nurse Practitioner Women's Health | DX: O09.899 Supervision of other high risk pregnancies, unspecified trimester (principal); O09.522 Supervision of elderly multigravida, second trimester; O09.891 Supervision of other high risk pregnancies, first trimester; O99.333 Smoking (tobacco) complicating pregnancy, third trimester; Z36.2 Encounter for other antenatal screening follow-up; Z3A.24 24 weeks gestation of pregnancy | CPT/HCPCS: 80307; 81000; 82950 ==

== ENCOUNTER → 2024-01-13 09:02 | Outpatient (BNVA) | payer MEDICAID, SELFPAY | PROVIDERS: PCP Obstetrics & Gynecology; Visit Provider Obstetrics & Gynecology | DX: Z34.93 Encounter for supervision of normal pregnancy, unspecified, third trimester (principal) | CPT/HCPCS: 76816 ==

== ENCOUNTER → 2024-01-25 11:26 | Outpatient (BNVA) | payer MEDICAID, SELFPAY | PROVIDERS: Visit Provider Obstetrics & Gynecology | DX: O09.899 Supervision of other high risk pregnancies, unspecified trimester (principal); Z3A.28 28 weeks gestation of pregnancy | CPT/HCPCS: 81000; 85025; 86850 ==

== ENCOUNTER 2024-02-13 14:10 | Emergency (ER) | payer MEDICAID, SELFPAY ==
[2024-02-13 14:22] VITALS: BP 124/77; PULSE 75; RESP 16; TEMP 36.6; O2SAT 97
--- NOTE | 2024-02-13 14:43 | W.ED.URI ---
HPI - URI/Sore Throat General: Chief Complaint: Upper Respiratory Infection Stated Complaint: cough, congestion Time Seen by Provider: 02/13/24 14:15 Source: patient Mode of arrival: ambulatory Limitations: no limitations History of Present Illness: Patient is a 33-year-old female presents to ED today with a complaint of a productive cough and nasal congestion. She states she has had symptoms for approximately 2 weeks. She has not been running fevers. She states she is approximately 6.5 months . She continues to smoke. She does not complain of any chest pain, shortness of breath, or difficulty breathing. She arrives today with completely normal vital signs. MD elicited complaint: cough and nasal congestion Onset (ago): week(s) Consistency: constant Severity: moderate Description of mucous: clear Able to tolerate fluids by mouth: Yes Exacerbating factors: nothing Relieving factors: nothing Associated symptoms: Reports congestion, cough, nasal congestion and sinus pain; Deny chills, chest pain, diarrhea, ear or mastoid pain, fever(s), headache(s), nausea or vomiting Treatments prior to arrival: none Review of Systems Const: Denies: fever(s), chills, body aches or fatigue Eyes: Denies: change in vision, blurry vision, photophobia, eye discomfort or eye discharge ENMT: Reports: nasal discharge, nasal congestion and sinus pain; Denies: throat pain, enlarged tonsils, odynophagia, swelling of lips/tongue, oral sores, ear or mastoid pain, ear discharge or post nasal drip Card: Denies: chest pain, palpitations, irregular heart rhythm, lightheadedness, syncope or pre-syncope Resp: Reports: productive cough and chest congestion; Denies: dyspnea, non-productive cough, wheezing or hemoptysis GI: Denies: nausea, vomiting or diarrhea Musc: Denies: neck pain Skin/Breast: Denies: rash Neuro: Denies: headache(s) or dizziness All/Imm: Denies: facial swelling or seasonal rhinorrhea [facility] ED PFSH: Medical History Grand multiparity Vaginal delivery 5 vaginal deliveries Excessive weight gain during in third trimester Tobacco smoking affecting No pertinent past medical history neghx: htn,dm,thyroid,dvt/pe,herpes denies partner with herpes Surgical History Hx of adenoidectomy Family History Mother Heart disease Father Hypertension Family/Other Thyroid disease Maternal Aunt Daughter Thyroid disease hypothyroidism Denies family history of Colon cancer Ovarian cancer Diabetes Hypercholesteremia Breast cancer Uterine cancer Stroke Female Reproductive History: Spontaneous abortions: No Physical Exam Const: COMMON NORMALS: no acute distress, average body habitus, patient oriented x3, no limitations, alert and well nourished ORIENTATION/CONSCIOUSNESS: Yes awake, Yes oriented to person, Yes oriented to place and Yes oriented to time HENMT: COMMON NORMALS: normocephalic, atraumatic, hearing grossly normal bilaterally, external ears normal, EAC's normal, TM's normal bilaterally, Normal external nose present, Normal nasal mucous membranes and turbinates present, moist oral mucous membranes and oropharynx normal HEAD & SCALP: normal to inspection, normocephalic and atraumatic FACE & SINUS: normal facial exam and sinus tenderness NOSE: Normal external nose present, Normal nasal mucous membranes and turbinates present and Nasal discharge present EXTERNAL EAR: Yes external ears normal EXTERNAL AUDITORY CANAL: EAC's normal TYMPANIC MEMBRANE: TM's normal bilaterally MOUTH: Normal oral and palatal mucosa present and lip normal THROAT: posterior oropharynx normal, tonsils normal and uvula midline Eye: COMMON NORMALS: Equal, round and reactive pupils present, EOMs intact bilaterally and conjunctivae normal CONJUNCTIVA: Yes conjunctivae normal PUPIL: Yes Equal, round and reactive pupils present Neck/C-Spine: COMMON NORMALS: no lymphadenopathy Chest: COMMONS NORMALS: normal inspection of the chest and normal palpation of entire chest wall Resp: COMMON NORMALS: normal respiratory effort AUSCULTATION: wheezes (faint bilateral bases-expiratory ) Cardio: COMMON NORMALS: regular rate and regular rhythm RATE: regular rate RHYTHM: regular rhythm GI: INSPECTION: Yes gravid abdomen Neuro: COMMON NORMALS: patient oriented x3 SENSORIUM/ORIENTATION: Yes alert, Yes oriented to person, Yes oriented to place and Yes oriented to time Course Vital Signs: Vital signs: Vital Signs Temperature 97.8 F 02/13/24 14:46 Pulse Rate 75 02/13/24 14:46 Respiratory Rate 16 02/13/24 14:46 Blood Pressure 124/77 02/13/24 14:46 Pulse Oximetry 97 02/13/24 14:46 Oxygen Delivery Me thod Room Air 02/13/24 14:22 MDM - URI/Sore Throat Medical Decision Making Patient here with most likely viral upper respiratory infection. She clinically appears in no acute distress. Her vital signs are stable. Respiratory panel collected and pending. Will reach out to her later today in regards to results and can tailor treatment therapy if needed. We did discuss conservative therapies at home as well as safe OTC remedies in . Recommend follow-up with her primary care next week if symptoms do not seem to be improving. Differential Diagnosis Likely upper respiratory infection, viral infection and bronchitis No radiology studies performed this visit Discharge Plan Discharge Patient Disposition: Home Clinical Impression: Upper respiratory infection Qualifiers: URI type: unspecified URI Qualified Code(s): J06.9 - Acute upper respiratory infection, unspecified Condition: Stable Prescriptions: No Action DHA 200 mg capsule PO DAILY Discharge Orders: Discharge ED (Routine); Ordered 02/13/24 Ordered By: Berta Wyatt Patient Instructions: Upper Respiratory Infection (DC) Activity Restrictions/Additional Instructions: As we discussed I will contact you later today in regards to your respiratory panel results. Continue the conservative therapies that we discussed on today's visit. Coding Level of Care Code ED Fresh Food Manager for Caprice Valente
[2024-02-13 14:46] VITALS: BP 124/77; PULSE 75; RESP 16; TEMP 36.6; O2SAT 97
[2024-02-13 16:30] LABS: Adenovirus Not Detected (NOT DETECT); Chlamydia Pneumoniae Not Detected (NOT DETECT); Coronavirus 229E,HKU1,NL63,OC4 Not Detected (NOT DETECT); Human Metapneumovirus Not Detected (NOT DETECT); Human Rhinovirus/Enterovirus Detected (NOT DETECT); Influenza A Not Detected (NOT DETECT); Influenza A H1 Not Detected (NOT DETECT); Influenza A H1-2009 Not Detected (NOT DETECT); Influenza A H3 Not Detected (NOT DETECT); Influenza B Not Detected (NOT DETECT); Mycoplasma Pneumoniae Not Detected (NOT DETECT); Parainfluenza Virus Type 1 Not Detected (NOT DETECT); Parainfluenza Virus Type 2 Not Detected (NOT DETECT); Parainfluenza Virus Type 3 Not Detected (NOT DETECT); Parainfluenza Virus Type 4 Not Detected (NOT DETECT); Respiratory Syncytial Virus A Not Detected (NOT DETECT); Respiratory Syncytial Virus B Not Detected (NOT DETECT); SARS-COV-2 Not Detected (NOT DETECT)
== END 2024-02-13 14:47 | disposition home or self-care (01) ==
PROVIDERS: Emergency Provider Physician Assistant
DX: J06.9 Acute upper respiratory infection, unspecified (principal)
CPT/HCPCS: 87486; 87581; 87633; 99283

== ENCOUNTER → 2024-02-18 07:43 | Outpatient (BNVA) | payer MEDICAID, SELFPAY | PROVIDERS: Visit Provider Obstetrics & Gynecology | DX: O09.899 Supervision of other high risk pregnancies, unspecified trimester (principal); Z3A.30 30 weeks gestation of pregnancy | CPT/HCPCS: 81000 ==

== ENCOUNTER → 2024-03-08 08:10 | Outpatient (BNVA) | payer MEDICAID, SELFPAY | PROVIDERS: Visit Provider Nurse Practitioner Women's Health | DX: O09.899 Supervision of other high risk pregnancies, unspecified trimester (principal); Z3A.34 34 weeks gestation of pregnancy | CPT/HCPCS: 81000; 85025 ==

== ENCOUNTER → 2024-03-21 10:22 | Outpatient (BNVA) | payer MEDICAID, SELFPAY | PROVIDERS: Visit Provider Obstetrics & Gynecology | DX: O09.899 Supervision of other high risk pregnancies, unspecified trimester (principal); Z3A.36 36 weeks gestation of pregnancy | CPT/HCPCS: 76816; 81000; 87081 ==

== ENCOUNTER → 2024-03-28 07:56 | Outpatient (BNVA) | payer MEDICAID, SELFPAY | PROVIDERS: Visit Provider Obstetrics & Gynecology | DX: O09.899 Supervision of other high risk pregnancies, unspecified trimester (principal); Z3A.37 37 weeks gestation of pregnancy | CPT/HCPCS: 81000 ==

== ENCOUNTER 2024-04-06 20:05 | Outpatient (CLI) | payer MEDICAID, SELFPAY ==
[2024-04-06 20:05] VITALS: BMI 36.9
[2024-04-06 20:19] VITALS: BP 122/59; PULSE 71; TEMP 35.6
[2024-04-06 20:30] VITALS: BP 117/55; PULSE 74
[2024-04-06 20:41] VITALS: BP 109/57; PULSE 70
[2024-04-06 20:50] VITALS: BP 126/62; PULSE 67
[2024-04-06 21:00] VITALS: BP 100/64; PULSE 71
--- NOTE | 2024-04-06 22:31 | PC.NURSE ---
2100 pt taken off the monitor by page technician, Bruce. This RN seen pt had been off the monitor for approximately 30 minutes and asked Maryam mancia, to check on pt at the bedside. Yana reported the triage room door was open and ultrasound was at the bedside. Ultrasound stated that he scanned the pt for approximately 10 minutes when the pt requested to use to restroom. He then stated the pt had been in the restroom for about 20 minutes. This nurse approached the triage bathroom door and asked pt if she was okay. Pt stated she was fine. This RN explained to the pt that she had been off the monitor for an extended amount of time and asked how long she would be because ultrasound had other scans to be completed. Pt stated tell him he can go. Advised pt that her scan would have to be completed first. Pt stated she could not put a time on how long she would be. 2156 security and warehouse incentive selector notified and requested on the unit. RN approached triage bathroom door and asked pt if she could come out and complete the scan. pt stated she was fine, the baby was fine and her cervix has been the same for 2 weeks so she is leaving as soon are she was done in the restroom. 2202 Pt exits triage bathroom and goes to triage room to change. This RN ask pt if she would be willing to finish her ultrasound and SVE. Pt stated no she is leaving. This RN advises pt of the risk involved with leaving the hospital at this time and the benefits of continuing treatment. Dr. Martinez notified of pt leaving AMA. 2207 AMA paper work is signed and pt leaves the unit ambulatory.
--- NOTE | 2024-04-06 23:00 | US_ITS ---
WS: [id number] BIOPHYSICAL PROFILE AMNIOTIC FLUID HISTORY: WELL BEING COMPARISON: 03/21/2024 position: Vertex. Cardiac activity: 123 bpm. Cervix: Obscured by the head. Not well visualized. Placenta: Posterior and fundal. No previa. No abruption. Placenta grade: 2 Parameters are as follows: Breathin Movement: 2 Tone: 2 Fluid volume: 2 Amniotic Fluid Index: 12.5 cm US/US OB BPP wo NST [id number] IMPRESSION: 1. Biophysical profile score: 8/8. 2. Normal amniotic fluid. 3. Grade 2 placenta.
== END 2024-04-06 22:08 | disposition left against medical advice (07) ==
LOC: OPOB 20:06 → OBGYN 20:07
PROVIDERS: Visit Provider Obstetrics & Gynecology
DX: O26.899 Other specified pregnancy related conditions, unspecified trimester (principal); Z3A.00 Weeks of gestation of pregnancy not specified; R51.9 Headache, unspecified; R20.2 Paresthesia of skin
CPT/HCPCS: 59025; 76819; 99211

== ENCOUNTER → 2024-04-07 08:14 | Outpatient (BNVA) | payer MEDICAID, SELFPAY | PROVIDERS: Visit Provider Obstetrics & Gynecology | DX: O09.899 Supervision of other high risk pregnancies, unspecified trimester (principal); Z30.09 Encounter for other general counseling and advice on contraception; O09.522 Supervision of elderly multigravida, second trimester; O99.333 Smoking (tobacco) complicating pregnancy, third trimester; O09.891 Supervision of other high risk pregnancies, first trimester; Z36.2 Encounter for other antenatal screening follow-up; O99.013 Anemia complicating pregnancy, third trimester; Z3A.38 38 weeks gestation of pregnancy | CPT/HCPCS: 81000 ==

== ENCOUNTER → 2024-04-18 08:10 | Outpatient (BNVA) | payer MEDICAID, SELFPAY | PROVIDERS: Visit Provider Obstetrics & Gynecology | DX: O09.899 Supervision of other high risk pregnancies, unspecified trimester (principal); O09.522 Supervision of elderly multigravida, second trimester; O99.333 Smoking (tobacco) complicating pregnancy, third trimester; O09.891 Supervision of other high risk pregnancies, first trimester; Z3A.40 40 weeks gestation of pregnancy | CPT/HCPCS: 81000 ==

== ENCOUNTER 2024-04-24 10:13 | Inpatient (IN) | payer MEDICAID, SELFPAY ==
[2024-04-24] VITALS (34 sets, daily range): BP systolic 92–147; BP diastolic 51–87; PULSE 51–90; RESP 14–18; TEMP 35.9–37.6; O2SAT 96–99; BMI 41.3
--- NOTE | 2024-04-24 11:01 | P.ANESASSM_ITS ---
Pre-Anesthetic Assessment Height/Weight: Height 1.7 m Weight 119.748 kg Pulse BP 60 136/77 04/24/24 10:57 04/24/24 10:57 Preop Diagnosis: IUP epidural Familial anesthetic complications: none Was Beta Dianne taken within 24 hours: N/A Was Clonidine taken within 24 hours: N/A Exam alert and oriented x 3 Airway Submandibular: within normal limits Cervical ROM: within normal limits Mallampati: Class II Dentition: false Pulmonary None reported CV/HEM None reported None reported Hepatic None reported GI None reported Metabolic None reported Musc/skel None reported Neuropsych was told she has scoliosis Anesthetic Plan ASA status: 3 Anesthesia: Anesthesia Evaluation and Regional (specify below) Medications/Allergies Home Medications Medication Instructions Recorded Confirmed Last Taken Type 1 caplet PO DAILY 04/06/24 04/24/24 04/23/24 19:00 History Allergies Allergy/AdvReac Type Severity Reaction Status Date / Time butorphanol [Stadol] Allergy Severe anaphylacti Verified 04/18/24 11:03 c latex Allergy swelling Verified 04/18/24 11:03 PFSH Anesthesia Medical History Grand multiparity Vaginal delivery 5 vaginal deliveries Excessive weight gain during in third trimester Tobacco smoking affecting No pertinent past medical history neghx: htn,dm,thyroid,dvt/pe,herpes denies partner with herpes Surgical History Hx of adenoidectomy Family History Mother Heart disease Father Hypertension Family/Other Thyroid disease Maternal Aunt Daughter Thyroid disease hypothyroidism Denies family history of Colon cancer Ovarian cancer Diabetes Hypercholesteremia Breast cancer Uterine cancer Stroke Female Reproductive History Spontaneous abortions: No Data Anesthesia 04/24/24 10:52 Cardiac Studies: 2 Echocardiogram Ultrasound 05/05/21
[2024-04-24 11:02] LABS: Basophils % 0.3 %; Eosinophils # 0.1 10^3/uL (0.0-0.8); Eosinophils % 1.4 %; Hematocrit 29.7 % (36-47); Lymphocytes # 1.6 10^3/uL (0.8-4.8); Lymphocytes % 16.6 %; Mean Corpuscular HGB Conc 32.3 g/dL (30-55); Mean Corpuscular Hemoglobin 28.6 pg (27-33); Mean Corpuscular Volume 88.4 fl (85-98); Monocytes # 0.6 10^3/uL (0.2-0.9); Monocytes % 6.5 %; Neutrophils # 7.36 10^3/uL (1.8-7.7); Neutrophils % 74.3 %; Nucleated Red Blood Cells % 0.2 %; Platelet Count 240 10^3/cmm (157-399); Red Blood Count 3.36 10^6/uL (3.85-5.65); Red Cell Distribution Width 15.9 % (12.1-15.1)
[2024-04-24] MEDS: ROPivacaine syringe 100 MG/50 ML SYRINGE 10 MG EPIDURAL (11:09)
[2024-04-24] MEDS: lactated ringers 1,000 ML 999 ML IV (11:09)
--- NOTE | 2024-04-24 11:10 | P.HP_ITS ---
Providers/Chief Complaint 2 Admitting Physician: Sharee Cuevas DO Primary CLINICAL EXERCISE SPECIALIST: Dr. Martinez Chief Complaint: Contractions HPI CLINICAL EXERCISE SPECIALIST History of Present Illness Alma Sapp is a 33 year old female G9, P6 at 41.2 weeks gestation admitted to labor and delivery in early labor. Patient states onset of contractions at 3 AM today. Patient denies leakage of fluid or vaginal bleeding. She admits to good movement. Patient was scheduled for elective induction of labor on 04/22/2024 but left AMA stating need to go home and be with family. Labs Rubella: Immune RPR: Negative GBS: Negative Review of Systems 2 Narrative: 33-year-old female awake and alert no ac raymond distress Const: Denies: fever(s) or chills Card: Denies: chest pain, palpitations, irregular heart rhythm or syncope Resp: Denies: dyspnea GI: Denies: abdominal pain, nausea or vomiting : Denies: flank pain, dysuria, urinary frequency or urinary urgency Musc: Denies: back pain or extremity swelling Skin/Breast: Denies: rash, pruritus, breast pain, nipple discharge or breast mass Neuro: Denies: headache(s), difficulty walking, dizziness or restless legs Psych: Denies: anxiety, depression or mood swings Endo: Denies: polyuria, tired all the time, cold intolerance or heat intolerance Damien/Lymph: Denies: easy bruising, easy bleeding, petechiae or purpura All/Imm: Denies: urticaria Medications/Allergies Home Medications Medication Instructions Recorded Confirmed Last Taken Type 1 caplet PO DAILY 04/06/24 04/24/24 04/23/24 19:00 History Allergies Allergy/AdvReac Type Severity Reaction Status Date / Time butorphanol [Stadol] Allergy Severe anaphylacti Verified 04/18/24 11:03 c latex Allergy swelling Verified 04/18/24 11:03 PFSH CLINICAL EXERCISE SPECIALIST 2 PFSH: Medical History Grand multiparity Vaginal delivery 5 vaginal deliveries Excessive weight gain during in third trimester Tobacco smoking affecting No pertinent past medical history neghx: htn,dm,thyroid,dvt/pe,herpes denies partner with herpes Surgical History Hx of adenoidectomy Family History Mother Heart disease Father Hypertension Family/Other Thyroid disease Maternal Aunt Daughter Thyroid disease hypothyroidism Denies family history of Colon cancer Ovarian cancer Diabetes Hypercholesteremia Breast cancer Uterine cancer Stroke Other Female Reproductive History: Hx Age of Menarche: 12 Duration of menses: 3-5 days Date of Last Menstrual Period: 07/10/23 Cycle Length: I rregular Sexual History: How old were you when you first had sex?: 14 How long have you been with your current partner?: Since 2019 History History History 2 9 Term 6 0 Miscarriages/Ectopic 2 Living Children 6 Care MIC Calculator 2 Estimated Delivery Date Method Current WG Current Estimate 04/15/24 LMP (Certain) 41w 2d Other Estimates 04/20/24 Ultrasound #1 40w 4d Specific Issues/Plans * GRAND MULTIP * AMA -declined panorama * SHORT IC * TOBACCO USE * DESIRES STERILIZATION--- HEATHER PAPERS SIGNED 01/25/2024 * HX PRE-ECLAMPSIA in 2005; none since * HX OLIGOHYDRAMNIOS Vitals/I&O/Wt Last Vital Signs Pulse 60 04/24/24 10:57 BP 136/77 04/24/24 10:57 O2 Del Method Room Air 04/24/24 10:34 Weight last 48 hrs Weight 119.748 kg Physical Exam 2 Narrative: 32-year-old female alert and o rient x3 no acute distress HENMT: HEAD & SCALP: normal to inspection and normocephalic Resp: COMMON NORMALS: normal respiratory effort and clear to auscultation bilaterally Cardio: COMMON NORMALS: regular rate and regular rhythm Back/Pelvis: COMMON NORMALS: no CVA tenderness OTHER: Gravid, Cervix 5 cm / 80%/-2 vertex presentation membranes intact. Extremity: COMMON NORMALS: normal to inspection, no calf tenderness and no pedal edema Neuro: COMMON NORMALS: patient oriented x3, CN's II-XII intact bilaterally and moves all extremities Data 04/24/24 10:52 Results Labs OB ([facility]): 2 Obstetrics US 03/21/24 Obstetrics US/Biophysical Profile Blood Type O Positive 09/11/23 Antibody Screen Negative 01/25/24 Hct 29.7 % (36-47) L 04/24/24 Hgb 9.60 g/dL (11.27-16.99) L 04/24/24 Rho(D) Type Positive 09/11/23 Plt Count 240 10^3/cmm (157-399) 04/24/24 Hep Bs Antigen Non-reactive (Nonreactive) 09/11/23 Hepatitis C Antibody Non-reactive (Nonreactive) 09/11/23 Rubella IgG Antibody 29.3 IU/mL (0.0-10.0) H 09/11/23 RPR Nonreactive (Nonreactive) 09/11/23 HIV 1&2 Ab & HIV 1 Ag Non-reactive (Non-Reactiv) 09/11/23 TSH 1.10 uIU/mL (0.27-4.20) 10/02/22 C.trachomatis RNA (TMA) Not detected (NOT DETECTED) N.gonorrhoeae RNA (TMA) Not detected (NOT DETECTED) T. vaginalis Amp RNA Not detected (NOT DETECTED) 11/02/23 Chlamydia/GC Comment See note 11/02/23 Gest Glucose Tolerance 100 mg/dL (70-139) 12/31/23 HCG, Qual Positive (Negative) H 09/11/23 Urine Opiates Screen Negative ng/mL (Negative) 12/31/23 Ur Barbiturates Screen Negative ng/mL (Negative) 12/31/23 Ur Phencyclidine Scrn Negative ng/mL (Negative) 12/31/23 Ur Amphetamines Screen Negative ng/mL (Negative) 12/31/23 U Benzodiazepines Scrn Negative ng/mL (Negative) 12/31/23 Urine Cocaine Screen Negative ng/mL (Negative) 12/31/23 U Marijuana (THC) Screen Negative ng/mL (Negative) 12/31/23 Micro Urine Specimen 09/11/23 Pap Smear Interpret See note 07/09/22 A&P Assessment and plan (1) Post term , 41 weeks: Admit to labor and delivery for management of labor. (2) Anemia affecting : Qualifiers: Trimester: third trimester Qualified Code(s): O99.013 - Anemia complicating , third trimester (3) Supervision of other high-risk : (4) Short interval between pregnancies affecting in first trimester, antepartum: (5) Tobacco smoking affecting : Qualifiers: Trimester: third trimester Qualified Code(s): O99.333 - Smoking (tobacco) complicating , third trimester (6) Elderly multigravida: Qualifiers: Trimester: second trimester Qualified Code(s): O09.522 - Supervision of elderly multigravida, second trimester (7) Sterilization consult: Attestations 2 Medical Necessity Statement*: Patient admitted to labor and delivery for management of labor Coding Level of Care Code Acute Code for Chg Fwd Diagnoses Post term , 41 weeks O48.0; Z3A.41 Anemia affecting in third trimester O99.013 Trimester: third trimester Supervision of other high-risk O09.899 Short interval between pregnancies affecting in first trimester, antepartum O09.891 Tobacco smoking affecting in third trimester O99.333 Trimester: third trimester Multigravida of advanced maternal age in second trimester O09.522 Trimester: second trimester Sterilization consult Z30.09
--- NOTE | 2024-04-24 11:23 | ANES.PROC ---
Anesthesia Procedures Procedure/Date: 04/24/24 epidural Epidural: Time Out Performed: Yes Consents Signed: Procedure Consent Consent: from patient, risks and benefits reviewed and patient agrees to proceed Lumbar Level: L3-L4 Epidural position: sitting Epidural procedure: sterile prep of area, 1% lidocaine to numb the area, 18 g needle, negative for paresthesia passed, test dose given, 1.5% xylocaine 1:200k epi, placed PCEA, no systemic response, sterile dressing applied, L.U.D. no apparent complications and 0.2% Ropiavacaine @ mls/hr (13) Additional Comments: ANAY at 5. patient jumped suddenly during ANAY. negative aspiration of blood/CSF. negative test dose. taped at 13 at skin.
--- NOTE | 2024-04-24 12:09 | PM.OBGYPN ---
[employer] Subjective Subjective: Interval history: 33-year-old female G9, P6 at 41.2 weeks gestation has just received epidural for pain management. EFM?occasional variable noted. Cervix 6 cm / 90%/-1 vertex. AROM?no fluid appreciated. Labor: Station: -2 Amniotic Membrane Status: Intact Monitor Mode: External Vitals/I&O/Wt Last Vital Signs Pulse 65 04/24/24 11:56 BP 99/53 04/24/24 11:56 Pulse Ox 98 04/24/24 11:19 O2 Del Method Room Air 04/24/24 10:34 Weight last 48 hrs Weight 119.748 kg Data 04/24/24 10:52 A&P Assessment and plan (1) Post term , 41 weeks: Admit to labor and delivery for management of labor. (2) Anemia affecting : Qualifiers: Trimester: third trimester Qualified Code(s): O99.013 - Anemia complicating , third trimester (3) Supervision of other high-risk : (4) Short interval between pregnancies affecting in first trimester, antepartum: (5) Tobacco smoking affecting : Qualifiers: Trimester: third trimester Qualified Code(s): O99.333 - Smoking (tobacco) complicating , third trimester (6) Elderly multigravida: Qualifiers: Trimester: second trimester Qualified Code(s): O09.522 - Supervision of elderly multigravida, second trimester (7) Sterilization consult: Attestations Medical Necessity Statement*: Management of labor Coding Level of Care Code Acute Code for Chg Fwd Diagnoses Post term , 41 weeks O48.0; Z3A.41 Anemia affecting in third trimester O99.013 Trimester: third trimester Supervision of other high-risk O09.899 Short interval between pregnancies affecting in first trimester, antepartum O09.891 Tobacco smoking affecting in third trimester O99.333 Trimester: third trimester Multigravida of advanced maternal age in second trimester O09.522 Trimester: second trimester Sterilization consult Z30.09
[2024-04-24] MEDS: dextrose 5%-lactated ringers 1,000 ML 125 ML IV (12:10)
--- NOTE | 2024-04-24 14:21 | PM.OBGYPN ---
RN LABOR AND DELIVERY Subjective Subjective: Interval history: Patient progressing in labor, now 8 cm / 90%/-1 vertex presentation. EFM category 1 with contractions every 2 to 5 minutes. Patient comfortable with epidural Labor: Station: -2 Amniotic Membrane Status: Intact Monitor Mode: External Vitals/I&O/Wt Last Vital Signs Temp 96.6 F L 04/24/24 12:12 Pulse 64 04/24/24 14:03 BP 117/62 04/24/24 14:03 Pulse Ox 98 04/24/24 11:19 O2 Del Method Room Air 04/24/24 10:34 04/23/24 04/24/24 04/24/24 22:59 06:59 14:59 Output Total 3 / 3 Balance -3 / -3 Weight last 48 hrs Weight 119.748 kg Physical Exam Urinary Catheter Management: Castellanos Latex Free: Cath Placed During This Visit: yes, but has since been removed by the nurse Reason for Continuing Indwelling Catheter: Required Immobilization for Trauma or Surgery or Anesthesia Urinary Catheter Date of Insertion: 04/24/24 Urinary Catheter Time of Insertion: 12:01 Date Urinary Catheter Removed: 04/24/24 Time Urinary Catheter Discontinued: 12:40 Data 04/24/24 10:52 A&P Assessment and plan (1) Post term , 41 weeks: Admit to labor and delivery for management of labor. (2) Anemia affecting : Qualifiers: Trimester: third trimester Qualified Code(s): O99.013 - Anemia complicating , third trimester (3) Supervision of other high-risk : (4) Short interval between pregnancies affecting in first trimester, antepartum: (5) Tobacco smoking affecting : Qualifiers: Trimester: third trimester Qualified Code(s): O99.333 - Smoking (tobacco) complicating , third trimester (6) Elderly multigravida: Qualifiers: Trimester: second trimester Qualified Code(s): O09.522 - Supervision of elderly multigravida, second trimester (7) Sterilization consult: Attestations Medical Necessity Statement*: Management of labor Coding Level of Care Code Acute Code for Chg Fwd Diagnoses Post term , 41 weeks O48.0; Z3A.41 Anemia affecting in third trimester O99.013 Trimester: third trimester Supervision of other high-risk O09.899 Short interval between pregnancies affecting in first trimester, antepartum O09.891 Tobacco smoking affecting in third trimester O99.333 Trimester: third trimester Multigravida of advanced maternal age in second trimester O09.522 Trimester: second trimester Sterilization consult Z30.09
[2024-04-24] MEDS: oxytocin 30 UNIT/500 ML BAG 600 UNIT IV (15:12)
[2024-04-24] MEDS: miSOPROStol 200 mcg Tablet 800 MCG PR (15:16)
--- NOTE | 2024-04-24 15:22 | PM.DELIVERY ---
Delivery Note: Date of delivery: April 24, 2024 Pre-delivery diagnoses: 41.2 weeks gestation Advanced maternal age Grand multiparity GBS negative Post-delivery diagnoses: Macrosomia Shoulder dystocia Procedure: 33-year-old female G9, P7 delivered via of viable male infant with anterior shoulder dystocia relieved with Tiburcio procedure and suprapubic pressure. Rotation of the anterior shoulder all assisting with delivery of the anterior followed by the posterior shoulder and the remainder of the baby's body. With delay in clamping of the cord the was stimulated followed by a robust cry. The cord was then clamped and cut and baby placed on the warmer for nursing assistance. Cord pH and cord blood were drawn and handed off. Pitocin IV solution was started in a bolus manner. The uterus was massaged and the placenta presented in a Spence presentation with trailing membranes. It appeared postdates with many areas of calcification. The uterus was massaged and firmed well. The vaginal vault and perineum were examined with no lacerations noted. 800 mg of Cytotec was placed rectally for patient is at great risk of bleeding. The uterus was massaged further and stayed firm. The epidural was discontinued. Op report anesthesia: Epidural Delivering Physician: Sharee Cuevas DO Estimated blood loss (mL): 300 Findings: Viable male 9 pounds 9 ounces Apgars 7/9 Post Delivery Diagnoses: Elderly multigravida: Qualifiers: Trimester: second trimester Qualified Code(s): O09.522 - Supervision of elderly multigravida, second trimester Post-Delivery Status: Stable History History History 9 Term 6 0 Miscarriages/Ectopic 2 Living Children 6 A&P Assessment and plan (1) Spontaneous vaginal delivery: Began care Patient desires tubal sterilization (tubal consent form is not included in medical record) (2) Shoulder dystocia during labor and delivery: (3) Post term , 41 weeks: (4) Supervision of other high-risk : (5) Elderly multigravida: Qualifiers: Trimester: second trimester Qualified Code(s): O09.522 - Supervision of elderly multigravida, second trimester Coding Level of Care Code Acute Code for Chg Fwd Diagnoses Spontaneous vaginal delivery O80 Shoulder dystocia during labor and delivery O66.0 Post term , 41 weeks O48.0; Z3A.41 Supervision of other high-risk O09.899 Multigravida of advanced maternal age in second trimester O09.522 Trimester: second trimester
[2024-04-24] MEDS: benzocaine-menthol 78 gm Canister 1 SPRAY TOPICAL (17:17)
[2024-04-24] MEDS: docusate sodium 100 mg Capsule PO (17:18)
[2024-04-24] MEDS: ibuprofen 800 mg tablet PO (20:27)
[2024-04-25 01:49] VITALS: BP 168/78; PULSE 61; RESP 17; TEMP 36.9; O2SAT 96
[2024-04-25 03:51] LABS: Hematocrit 28.3 % (36-47); Mean Corpuscular HGB Conc 31.8 g/dL (30-55); Mean Corpuscular Hemoglobin 28.6 pg (27-33); Mean Corpuscular Volume 89.8 fl (85-98); Mean Platelet Volume 10.4 fL (7.4-10.4); Platelet Count 219 10^3/cmm (157-399); Red Blood Count 3.15 10^6/uL (3.85-5.65); Red Cell Distribution Width 15.9 % (12.1-15.1); White Blood Count 13.03 10^3/uL (3.29-11.43)
[2024-04-25 05:00] VITALS: BP 128/79; PULSE 47; RESP 14; TEMP 36.8; O2SAT 96
[2024-04-25 07:17] LABS: Glucose Point of Care 110 mg/dL (70-110)
[2024-04-25 07:45] VITALS: BP 113/72; PULSE 49; RESP 16; TEMP 36.4
[2024-04-25] MEDS: docusate sodium 100 mg Capsule PO (07:50)
[2024-04-25] MEDS: PRENATAL VIT NO.130/IRON/FOLIC 1 EACH TABLET PO (07:50)
[2024-04-25] MEDS: ibuprofen 800 mg tablet PO (07:50)
--- NOTE | 2024-04-25 08:00 | ANE.PACU2 ---
Inpatient post-anesthesia follow up: Airway intact: Yes Vital signs: Temperature 98.0 F Pulse Rate 50 Respiratory Rate 17 Blood Pressure 110/75 Pulse Oximetry 96 Oxygen Delivery Me thod Room Air Oxygen Flow Rate Fraction of Inspir ed Oxygen Hydration adequate: Yes Nausea and vomiting: No Pain level: 1 Mental status: Baseline Epidural Start/End: Epidural Start Date: 04/24/24 Epidural Start Time: 11:04 Epidural End Date: 04/24/24 Epidural End Time: 15:22
--- NOTE | 2024-04-25 09:17 | PM.OBGYDC ---
Discharge Providers SOFTWARE APPLICATIONS DEVELOPER Date of Admission: 04/24/24 10:13 Date of Discharge: 04/25/24 Attending Provider at Admission: Sharee Cuevas DO Attending Provider at Discharge: Sharee Cuevas DO Diagnoses at Discharge Discharge Diagnosis (1) Spontaneous vaginal delivery: Details from hospital stay: S/P viable male , doing well, pt has no complaints, Denies RUEDA, visual changes, SOB or CP. Pt is breast feeding and ambulating in hallways. Status: Acute (2) Shoulder dystocia during labor and delivery: Status: Acute (3) Post term , 41 weeks: Status: Acute (4) Supervision of other high-risk : Status: Acute (5) Elderly multigravida: Status: Acute Qualifiers: Trimester: second trimester Qualified Code(s): O09.522 - Supervision of elderly multigravida, second trimester Reason for Visit Reason for Visit: Contractions Hospital Course Hospital Course no complications, viable male breast feeding. Information Peripartum Data: Delivery Method: Vaginal Laceration description: None Episiotomy description: None complications: none Physical Exam Narrative: Pt alert, no complaints. Resp: COMMON NORMALS: normal respiratory effort and clear to auscultation bilaterally AUSCULTATION: clear to auscultation bilaterally Cardio: COMMON NORMALS: regular rate and regular rhythm RATE: regular rate RHYTHM: regular rhythm Back/Pelvis: OTHER: Abd- soft, fundus firm. Lochia light. Extremity: NARRATIVE EXTREMITY EXAM: Mild Edema Neg Homans Urinary Catheter Management: Castellanos Latex Free: Cath Placed During This Visit: yes, but has since been removed by the nurse Reason for Continuing Indwelling Catheter: Decision to DC Catheter Urinary Catheter Date of Insertion: 04/24/24 Urinary Catheter Time of Insertion: 12:01 Date Urinary Catheter Removed: 04/24/24 Time Urinary Catheter Discontinued: 15:00 History History History 9 Term 6 0 Miscarriages/Ectopic 2 Living Children 6 Discharge Data Studies Completed and Pending Pending at discharge Category Date Time Status Glucose Fasting Routine Lab 04/25/24 07:00 Ordered Laboratory Results WBC 13.03 10^3/uL (3.29-11.43) H 04/25/24 03:20 RBC 3.15 10^6/uL (3.85-5.65) L 04/25/24 03:20 Hgb 9.00 g/dL (11.27-16.99) L 04/25/24 03:20 Hct 28.3 % (36-47) L 04/25/24 03:20 MCV 89.8 fl (85-98) 04/25/24 03:20 MCH 28.6 pg (27-33) 04/25/24 03:20 MCHC 31.8 g/dL (30-55) 04/25/24 03:20 RDW 15.9 % (12.1-15.1) H 04/25/24 03:20 Plt Count 219 10^3/cmm (157-399) 04/25/24 03:20 MPV 10.4 fL (7.4-10.4) 04/25/24 03:20 Neut % (Auto) 74.3 % 04/24/24 10:52 Lymph % (Auto) 16.6 % 04/24/24 10:52 Gallia % (Auto) 6.5 % 04/24/24 10:52 Eos % (Auto) 1.4 % 04/24/24 10:52 Baso % (Auto) 0.3 % 04/24/24 10:52 Neut # (Auto) 7.36 10^3/uL (1.8-7.7) 04/24/24 10:52 Lymph # (Auto) 1.6 10^3/uL (0.8-4.8) 04/24/24 10:52 Gallia # (Auto) 0.6 10^3/uL (0.2-0.9) 04/24/24 10:52 Eos # (Auto) 0.1 10^3/uL (0.0-0.8) 04/24/24 10:52 Baso # (Auto) 0.0 10^3/uL (0.0-0.1) 04/24/24 10:52 Nucleated RBC % (auto) 0.2 % 04/24/24 10:52 Nucleated RBCs # 0.0 /100WBC 04/24/24 10:52 POC Glucose 110 mg/dL (70-110) 04/25/24 07:12 Blood Type O Positive 04/24/24 10:52 Rho(D) Type Rh positive 04/24/24 10:52 Antibody Screen Negative 04/24/24 10:52 Vitals Last Vital Signs Temp 98.2 F 04/25/24 05:00 Pulse 47 L 04/25/24 05:00 Resp 14 04/25/24 05:00 BP 128/79 04/25/24 05:00 Pulse Ox 96 04/25/24 05:00 O2 Del Method Room Air 04/25/24 05:00 Results Labs OB ([facility]): Obstetrics US 03/21/24 Obstetrics US/Biophysical Profile 04/06/24 Blood Type O Positive 04/24/24 Antibody Screen Negative 04/24/24 Hct 28.3 % (36-47) L 04/25/24 Hgb 9.00 g/dL (11.27-16.99) L 04/25/24 Rho(D) Type Rh positive 04/24/24 Plt Count 219 10^3/cmm (157-399) 04/25/24 Hep Bs Antigen Non-reactive (Nonreactive) 09/11/23 Hepatitis C Antibody Non-reactive (Nonreactive) 09/11/23 Rubella IgG Antibody 29.3 IU/mL (0.0-10.0) H 09/11/23 RPR Nonreactive (Nonreactive) 09/11/23 HIV 1&2 Ab & HIV 1 Ag Non-reactive (Non-Reactiv) 09/11/23 TSH 1.10 uIU/mL (0.27-4.20) 10/02/22 C.trachomatis RNA (TMA) Not detected (NOT DETECTED) 11/02/23 N.gonorrhoeae RNA (TMA) Not detected (NOT DETECTED) 11/02/23 T. vaginalis Amp RNA Not detected (NOT DETECTED) 11/02/23 Chlamydia/GC Comment See note 11/02/23 Gest Glucose Tolerance 100 mg/dL (70-139) 12/31/23 HCG, Qual Positive (Negative) H 09/11/23 Urine Opiates Screen Negative ng/mL (Negative) 12/31/23 Ur Barbiturates Screen Negative ng/mL (Negative) 12/31/23 Ur Phencyclidine Scrn Negative ng/mL (Negative) 12/31/23 Ur Amphetamines Screen Negative ng/mL (Negative) 12/31/23 U Benzodiazepines Scrn Negative ng/mL (Negative) 12/31/23 Urine Cocaine Screen Negative ng/mL (Negative) 12/31/23 U Marijuana (THC) Screen Negative ng/mL (Negative) 12/31/23 Micro Urine Specimen 09/11/23 Pap Smear Interpret See note 07/09/22 Discharge Plan Discharge Patient Disposition: Home Condition: Stable Prescriptions: Continued 1 caplet PO DAILY Discharge Orders: Discharge Order (Routine); Ordered 04/25/24 Ordered By: Sharee Cuevas Discharge Diet: Regular Discharge Activity: Increase activity as tolerated and Limit activity as instructed Patient Instructions: Depression (DC), Opioid Safety (DC), Preeclampsia and Eclampsia After Delivery (GEN), Hemorrhage (DC), OB Discharge Report, OB Food/Drug Interaction Guide, Opioid Safety, OB Home Care, OB Vaginal Deliveries - [facility], Abnormal Bleeding Activity Restrictions/Additional Instructions: No heavy lifting, pushing or pulling. No Sex x 6 wks. Patient's Health Concerns: stable Assessment: S/P Desires elective Sterilization Plan of Treatment: DC to home Discharge Attestations SOFTWARE APPLICATIONS DEVELOPER Time Spent in Discharge Care*: less than 30 min Coding Level of Care Code Acute Code for Chg Fwd Diagnoses Spontaneous vaginal delivery O80 Shoulder dystocia during labor and delivery O66.0 Post term , 41 weeks O48.0; Z3A.41 Supervision of other high-risk O09.899 Multigravida of advanced maternal age in second trimester O09.522 Trimester: second trimester
[2024-04-25 15:30] VITALS: BP 110/75; PULSE 50; RESP 17; TEMP 36.7
[2024-04-25 15:45] VITALS: BP 110/75; PULSE 50; RESP 17; TEMP 36.7
== END 2024-04-25 15:45 | disposition home or self-care (01) | DRG 807 ==
LOC: OPOB 10:35 → OBGYN 10:35
PROVIDERS: Admitting Provider Obstetrics & Gynecology; Visit Provider Obstetrics & Gynecology
DX: O48.0 Post-term pregnancy (principal); Z37.0 Single live birth; Z3A.41 41 weeks gestation of pregnancy; O99.334 Smoking (tobacco) complicating childbirth; O66.0 Obstructed labor due to shoulder dystocia; O99.02 Anemia complicating childbirth
CPT/HCPCS: 36415; 36416; 51702; 59025; 59409; 82962; 85025; 85027; 86850; 86900; 98960; 99211; J2590; J2795; J7120; J7121

== ENCOUNTER 2024-05-03 02:07 | Emergency (ER) | payer MEDICAID, SELFPAY ==
[2024-05-03 02:18] VITALS: BP 200/99; PULSE 42; RESP 18; TEMP 36.7; O2SAT 94; BMI 33.6
--- NOTE | 2024-05-03 02:22 | ECG_ITS ---
[facility] Test Date: 2024-05-03 Pat Name: Alma Sapp Department: Room: Gender: Female Mechanics Supervisor: : 1990 Requested By: Suyapa Sahni Order Number: [id number] Armando MD: Andrew Kerns M.D. Measurements Intervals Finley Rate: 49 P: 53 NJ: 155 QRS: 27 QRSD: 90 T: 49 QT: 484 QTc: 439 Interpretive Statements SINUS BRADYCARDIA Compared to ECG 05/05/2021 11:46:49 No significant changes Electronically Signed On 05-03-2024 7:24:32 CDT by Andrew Kerns M.D. [id number]
--- NOTE | 2024-05-03 02:23 | CTR_ITS ---
PROCEDURE INFORMATION: Exam: CT Head Without Contrast Exam date and time: 05/03/2024 2:46 AM Age: 33 years old Clinical indication: Pain; Headache; Additional info: Severe headache, hypertension TECHNIQUE: Imaging protocol: Computed tomography of the head without contrast. Radiation optimization: All CT scans at this facility use at least one of these dose optimization techniques: automated exposure control; mA and/or kV adjustment per patient size (includes targeted exams where dose is matched to clinical indication); or iterative reconstruction. COMPARISON: CT head wo con* [id number] 05/02/2021 8:22 PM RADIATION DOSE METRICS: Total DLP (mGy-cm): 1088.98 FINDINGS: Brain: There is no evidence of acute parenchymal hemorrhage, extra-axial collection, or acute infarction. There is no mass effect, midline shift, or downward herniation. Cerebral ventricles: No ventriculomegaly. Paranasal sinuses: Visualized sinuses are unremarkable. No fluid levels. Mastoid air cells: Visualized mastoid air cells are well aerated. Bones: Unremarkable. No acute fracture. Soft tissues: Unremarkable. CT/CT head wo con* [id number] IMPRESSION: No acute intracranial abnormality.
--- NOTE | 2024-05-03 02:23 | XRR_ITS ---
PROCEDURE INFORMATION: Exam: XR Chest Exam date and time: 05/03/2024 2:38 AM Age: 33 years old Clinical indication: Other: HTN; Additional info: Headache, hypertension, gave a week ago TECHNIQUE: Imaging protocol: Radiologic exam of the chest. Views: 1 view. COMPARISON: CR XR chest 1V portable [id number] 05/02/2021 8:14 PM FINDINGS: Lungs: Unremarkable. No consolidation. Pleural spaces: Unremarkable. No pleural effusion. No pneumothorax. Heart/Mediastinum: Unremarkable. No cardiomegaly. Bones/joints: Unremarkable. XR/XR chest 1V portable [id number] IMPRESSION: No acute findings.
--- NOTE | 2024-05-03 02:24 | W.ED.HA ---
HPI - Headache General: Chief Complaint: Headache Stated Complaint: severe headache 4 days post Time Seen by Provider: 05/03/24 02:17 History of Present Illness: 33-year-old female who gave about 7 days ago and about 4 days ago developed a headache. She said it has been fairly severe and has not gone away. No focal motor deficits. She is hypertensive and bradycardic on presentation. No chest pain. No shortness of breath. No abdominal pain. No nausea or vomiting. Review of Systems Narrative: Constitutional symptoms: Negative except as documented in HPI. Skin symptoms: Negative except as documented in HPI. Eye symptoms: Negative except as documented in HPI. ENMT symptoms: Negative except as documented in HPI. Respiratory symptoms: Negative except as documented in HPI. Cardiovascular symptoms: Negative except as documented in HPI. Gastrointestinal symptoms: Negative except as documented in HPI. Genitourinary symptoms: Negative except as documented in HPI. Musculoskeletal symptoms: Negative except as documented in HPI. Neurologic symptoms: Negative except as documented in HPI. Psychiatric symptoms: Negative except as documented in HPI. Endocrine symptoms: Negative except as documented in HPI. PFSH ED PFSH: Medical History Grand multiparity Vaginal delivery 5 vaginal deliveries Excessive weight gain during in third trimester Tobacco smoking affecting No pertinent past medical history neghx: htn,dm,thyroid,dvt/pe,herpes denies partner with herpes Surgical History Hx of adenoidectomy Family History Mother Heart disease Father Hypertension Family/Other Thyroid disease Maternal Aunt Daughter Thyroid disease hypothyroidism Denies family history of Colon cancer Ovarian cancer Diabetes Hypercholesteremia Breast cancer Uterine cancer Stroke Female Reproductive History: Spontaneous abortions: No Physical Exam Narrative: EXAM NARRATIVE: General: Alert, no acute distress. Skin: Warm, dry. Head: Normocephalic, atraumatic. Neck: Supple, trachea midline. Eye: Extraocular movements are intact. Ears, nose, mouth and throat: mucosa moist. Cardiovascular: Regular, bradycardic, normal peripheral perfusion. Respiratory: Lungs are clear to auscultation, respirations are non-labored, breath sounds are equal, Symmetrical chest wall expansion. Gastrointestinal: Soft, Nontender, Non distended, Normal bowel sounds. Musculoskeletal: Normal ROM, no deformity. Neurological: Alert and oriented, No focal neurological deficit observed. Psychiatric: Cooperative, appropriate mood & affect. Course Vital Signs: Vital signs: Vital Signs Temperature 98.0 F 05/03/24 02:18 Pulse Rate 39 L 05/03/24 04:30 Respiratory Rate 13 05/03/24 04:30 Blood Pressure 178/79 05/03/24 04:30 Pulse Oximetry 89 L 05/03/24 04:30 Oxygen Delivery Me thod Room Air 05/03/24 03:10 MDM - Headache Medical Decision Making Medical decision making: Differential diagnosis including but not limited to and based on the above HPI, review of systems and physical exam: Headache, hypertension and bradycardia. Cardiac workup and basic lab work and urinalysis. Orders placed to evaluate differential diagnosis based on the above differential, HPI and physical exam EKG: Time 2:27 AM rate 49. Sinus bradycardia, No ST-T changes, no ectopy, normal MT & QRS intervals, This was reviewed and interpreted by myself the ER physician at 2:30 AM Chest x-ray: No acute process. No infiltrate. No pneumothorax. No cardiomegaly. This was reviewed and interpreted by myself the ER physician. CT head: No acute intracranial process. no intracranial hemorrhage, no evidence of infarct. no evidence of acute fracture.This was reviewed and interpreted by myself the ER physician. Lab Review: Laboratory results were reviewed and interpreted by myself the emergency room physician. Lab work is fairly unremarkable. White count is 9. Hemoglobin is 10.7. BUN and creatinine are 13 and 0.9. Respiratory panel was negative. Patient has perhaps a early UTI with leukocyte esterase and small amount of white cells so some Rocephin was given. I reviewed the patient's medical record. Reexamination: Patient says she feels quite a bit better. She is received some steroids and Toradol. Blood pressure is improved with improvement in her headache. She says she is ready to go home. Assessment and plan: Headache Bradycardia Hypertension ? IV Toradol, IV steroids. - Discharged home - Discussed plan with patient. Answered any questions. - Evaluation and treatment of this problem were appropriate in the emergency setting. Lab Data 05/03/24 02:40 05/03/24 02:40 Radiology Impressions Chest X-Ray 05/03/24 02:23 IMPRESSION: No acute findings. Head CT 05/03/24 02:23 IMPRESSION: No acute intracranial abnormality. Laboratory Results WBC 9.03 10^3/uL (3.29-11.43) 05/03/24 02:40 RBC 3.81 10^6/uL (3.85-5.65) L 05/03/24 02:40 Hgb 10.70 g/dL (11.27-16.99) L 05/03/24 02:40 Hct 33.4 % (36-47) L 05/03/24 02:40 MCV 87.7 fl (85-98) 05/03/24 02:40 MCH 28.1 pg (27-33) 05/03/24 02:40 MCHC 32.0 g/dL (30-55) 05/03/24 02:40 RDW 15.4 % (12.1-15.1) H 05/03/24 02:40 Plt Count 307 10^3/cmm (157-399) 05/03/24 02:40 MPV 10.2 fL (7.4-10.4) 05/03/24 02:40 Neut % (Auto) 62.5 % 05/03/24 02:40 Lymph % (Auto) 26.0 % 05/03/24 02:40 [place] % (Auto) 8.2 % 05/03/24 02:40 Eos % (Auto) 2.3 % 05/03/24 02:40 Baso % (Auto) 0.6 % 05/03/24 02:40 Neut # (Auto) 5.64 10^3/uL (1.8-7.7) 05/03/24 02:40 Lymph # (Auto) 2.4 10^3/uL (0.8-4.8) 05/03/24 02:40 [place] # (Auto) 0.7 10^3/uL (0.2-0.9) 05/03/24 02:40 Eos # (Auto) 0.2 10^3/uL (0.0-0.8) 05/03/24 02:40 Baso # (Auto) 0.1 10^3/uL (0.0-0.1) 05/03/24 02:40 Nucleated RBC % (auto) 0 % 05/03/24 02:40 Nucleated RBCs # 0.0 /100WBC 05/03/24 02:40 Sodium 142 mmol/L (136-145) 05/03/24 02:40 Potassium 4.0 mmol/L (3.5-5.1) 05/03/24 02:40 Chloride 108 mmol/L (98-107) H 05/03/24 02:40 Carbon Dioxide 23 mmol/L (22-29) 05/03/24 02:40 Anion Gap 15.0 (5-19) 05/03/24 02:40 BUN 13 mg/dL (6-20) 05/03/24 02:40 Creatinine 0.9 mg/dL (0.5-0.9) 05/03/24 02:40 GFR Calculation 71.3 mL/min (90-130) L 05/03/24 02:40 Glucose 94 mg/dL (65-115) 05/03/24 02:40 Calculated Osmolality 294 mOsm/kg (285-295) 05/03/24 02:40 Calcium 9.0 mg/dL (8.5-10.5) 05/03/24 02:40 Total Bilirubin 0.2 mg/dL (0.15-1.2) 05/03/24 02:40 AST 16 U/L (0-32) 05/03/24 02:40 ALT 76 U/L (0-33) H 05/03/24 02:40 Alkaline Phosphatase 176 U/L (35-105) H 05/03/24 02:40 Troponin T 5th Gen ng/L 14 ng/L (0-10) H 05/03/24 02:40 Total Protein 6.1 g/dL (6.6-8.7) L 05/03/24 02:40 Albumin 3.5 g/dL (3.5-5.2) 05/03/24 02:40 Globulin 2.6 g/dL (1.3-4.6) 05/03/24 02:40 Urine Color Yellow (Yellow) 05/03/24 03:00 Urine Appearance Clear (CLEAR) 05/03/24 03:00 Urine pH 7 (5-7) 05/03/24 03:00 Ur Specific [place] 1.005 (1.005-1.030) 05/03/24 03:00 Urine Protein Neg (Negative) 06/04/24 03:00 Urine Glucose (UA) Norm (Normal) 05/03/24 03:00 Urine Ketones Negative (Negative) 05/03/24 03:00 Urine Blood 3+ (Negative) H 05/03/24 03:00 Urine Nitrate Negative (Negative) 05/03/24 03:00 Urine Bilirubin Neg (Negative) 05/03/24 03:00 Urine Urobilinogen Neg mg/dL (Negative) 05/03/24 03:00 Ur Leukocyte Esterase Trace (Negative) H 05/03/24 03:00 Urine RBC 5-10 /hpf (0-2) H 05/03/24 03:00 Urine WBC 0-4 /hpf (0-5) H 05/03/24 03:00 Ur Squamous Epith Cells 0-4 /hpf (0-5) H 05/03/24 03:00 Amorphous Sediment Not Reportable 05/03/24 03:00 Urine Bacteria None /hpf (NONE) 05/03/24 03:00 Adenovirus (PCR) Not detected (NOT DETECT) 05/03/24 02:53 C. pneumoniae DNA (PCR) Not detected (NOT DETECT) 05/03/24 02:53 Coronavirus 229E (PCR) Not detected (NOT DETECT) 05/03/24 02:53 Human Metapneumovir PCR Not detected (NOT DETECT) 05/03/24 02:53 Influenza A (H1) PCR Not detected (NOT DETECT) 05/03/24 02:53 Influ A (H1/09) PCR Not detected (NOT DETECT) 05/03/24 02:53 Influenza A (H3) PCR Not detected (NOT DETECT) 05/03/24 02:53 Influenza Type A (PCR) Not detected (NOT DETECT) 05/03/24 02:53 Influenza Type B (PCR) Not detected (NOT DETECT) 05/03/24 02:53 M. pneumoniae (PCR) Not detected (NOT DETECT) 05/03/24 02:53 Parainfluenza 1 (PCR) Not detected (NOT DETECT) 05/03/24 02:53 Parainfluenza 2 (PCR) Not detected (NOT DETECT) 05/03/24 02:53 Parainfluenza 3 (PCR) Not detected (NOT DETECT) 05/03/24 02:53 Parainfluenza 4 (PCR) Not detected (NOT DETECT) 05/03/24 02:53 RSV Type A (PCR) Not detected (NOT DETECT) 05/03/24 02:53 RSV Type B (PCR) Not detected (NOT DETECT) 05/03/24 02:53 Entero/Rhino (PCR) Not detected (NOT DETECT) 05/03/24 02:53 SARS-CoV-2 (PCR) Not detected (NOT DETECT) 05/03/24 02:53 All radiology interpretation(s) finalized by discharge Discharge Plan Discharge Patient Disposition: Home Clinical Impression: Bradycardia Headache Qualifiers: Headache type: other headache syndrome Qualified Code(s): G44.89 - Other headache syndrome Hypertension Qualifiers: Hypertension type: unspecified Qualified Code(s): I10 - Essential (primary) hypertension Condition: Stable Prescriptions: No Action 1 caplet PO DAILY Discharge Orders: Discharge ED (Routine); Ordered 05/03/24 Ordered By: Suyapa Muñoz Referrals: Donald Martinez MD [Primary Care Provider] - 1-3 days Discharge Diet: Usual diet Discharge Activity: Increase activity as tolerated Patient Instructions: General Headache (ED) Activity Restrictions/Additional Instructions: Thank you for choosing [facility] for your healthcare needs today. Please realize this is an emergency room and that we are providing you with a medical screening exam and this may not be complete and all inclusive of all the testing and or work up that you may need to determine your ailment or severity of your illness. You have been screened and evaluated and felt safe for discharge. Health conditions do change or evolve sometimes and as such it is important that you follow up with your Primary Doctor to be re checked, 3-5 days is a general good time frame for follow up. You are always welcome to return to the ED for re assessment if your symptoms are worsening or you have new concerns Coding Level of Care Code ED Visual Education Teacher for Caprcie Valente
[2024-05-03 02:44] LABS: Basophils # 0.1 10^3/uL (0.0-0.1); Basophils % 0.6 %; Eosinophils # 0.2 10^3/uL (0.0-0.8); Eosinophils % 2.3 %; Hematocrit 33.4 % (36-47); Lymphocytes # 2.4 10^3/uL (0.8-4.8); Mean Corpuscular Hemoglobin 28.1 pg (27-33); Mean Corpuscular Volume 87.7 fl (85-98); Mean Platelet Volume 10.2 fL (7.4-10.4); Monocytes # 0.7 10^3/uL (0.2-0.9); Monocytes % 8.2 %; Neutrophils # 5.64 10^3/uL (1.8-7.7); Neutrophils % 62.5 %; Nucleated Red Blood Cells % 0 %; Platelet Count 307 10^3/cmm (157-399); Red Blood Count 3.81 10^6/uL (3.85-5.65); Red Cell Distribution Width 15.4 % (12.1-15.1); White Blood Count 9.03 10^3/uL (3.29-11.43)
[2024-05-03 03:02] LABS: Troponin T (5th) Once 14 ng/L (0-10)
[2024-05-03 03:04] LABS: Alanine Aminotransferase 76 U/L (0-33); Albumin Level 3.5 g/dL (3.5-5.2); Alkaline Phosphatase 176 U/L (35-105); Aspartate Amino Transferase 16 U/L (0-32); Blood Urea Nitrogen 13 mg/dL (6-20); Carbon Dioxide 23 mmol/L (22-29); Chloride 108 mmol/L (98-107); Globulin 2.6 g/dL (1.3-4.6); Glomerular Filtration Rate 71.3 mL/min (90-130); Glucose 94 mg/dL (65-115); Osmolality Calculated 294 mOsm/kg (285-295); Sodium 142 mmol/L (136-145); Total Bilirubin 0.2 mg/dL (0.15-1.2); Total Protein 6.1 g/dL (6.6-8.7)
[2024-05-03 03:10] VITALS: BP 162/84; PULSE 48; RESP 16; O2SAT 93
[2024-05-03 03:16] LABS: Bilirubin Urine Neg (Negative); Blood Urine 3+ (Negative); Glucose Urine UA Norm (Normal); Ketones Urine Negative (Negative); Leukocyte Esterase Urine Trace (Negative); Nitrate Urine Negative (Negative); Protein Urine Neg (Negative); Specific Gravity, Urine 1.005 (1.005-1.030); Squamous Epithelial Cell Urine 0-4 /hpf (0-5); Urine Appearance Clear (CLEAR); Urine Color Yellow (Yellow); Urobilinogen Urine Neg (Negative); WBC Urine 0-4 /hpf (0-5); pH Urine 7 (5-7)
[2024-05-03 03:17] LABS: Add Urine Culture? No
[2024-05-03 03:30] VITALS: PULSE 54; RESP 12; O2SAT 94
[2024-05-03] MEDS: cefTRIAXone 1,000 MG in sodium chloride 0.9% (plus) 50 ML 100 MG IV (03:30)
[2024-05-03] MEDS: ketorolac 30 mg/mL INJ IVP (03:48)
[2024-05-03 04:00] VITALS: PULSE 41; RESP 14; O2SAT 97
[2024-05-03 04:30] VITALS: BP 178/79; PULSE 39; RESP 13; O2SAT 89
[2024-05-03 04:47] LABS: Adenovirus Not Detected (NOT DETECT); Chlamydia Pneumoniae Not Detected (NOT DETECT); Coronavirus 229E,HKU1,NL63,OC4 Not Detected (NOT DETECT); Human Metapneumovirus Not Detected (NOT DETECT); Human Rhinovirus/Enterovirus Not Detected (NOT DETECT); Influenza A Not Detected (NOT DETECT); Influenza A H1 Not Detected (NOT DETECT); Influenza A H1-2009 Not Detected (NOT DETECT); Influenza A H3 Not Detected (NOT DETECT); Influenza B Not Detected (NOT DETECT); Mycoplasma Pneumoniae Not Detected (NOT DETECT); Parainfluenza Virus Type 1 Not Detected (NOT DETECT); Parainfluenza Virus Type 2 Not Detected (NOT DETECT); Parainfluenza Virus Type 3 Not Detected (NOT DETECT); Parainfluenza Virus Type 4 Not Detected (NOT DETECT); Respiratory Syncytial Virus A Not Detected (NOT DETECT); Respiratory Syncytial Virus B Not Detected (NOT DETECT); SARS-COV-2 Not Detected (NOT DETECT)
[2024-05-03] MEDS: dexamethasone 10 mg/mL INJ IVP (04:55)
[2024-05-03 05:16] VITALS: BP 157/76; PULSE 39; RESP 12; O2SAT 12
== END 2024-05-03 05:18 | disposition home or self-care (01) ==
PROVIDERS: Emergency Provider Emergency Medicine; PCP Obstetrics & Gynecology
DX: R00.1 Bradycardia, unspecified (principal); G44.89 Other headache syndrome; I10 Essential (primary) hypertension; Z11.52 Encounter for screening for COVID-19
CPT/HCPCS: 70450; 71045; 80053; 81001; 84484; 85025; 87486; 87581; 87633; 93005; 96365; 96375; 99285; J0696; J1100; J1885